=== PATIENT | male | born 1955 | race Caucasian/White ===

== ENCOUNTER 2020-10-04 10:03 | Inpatient (IN) ==
[2020-10-04] MEDS ORDERED: ASPIRIN CHEW 324 MG PO STA (10:34)
--- NOTE | 2020-10-04 10:38 | Emergency Department Note ---
Impression & Plan Chest pain, Atrial fibrillation, Pneumonia, Dyspnea, Exposure to COVID-19 virus, Abnormal ECG ED Provider Note NAME: DANIA SANDOVAL AGE: 65 SEX: M : 1955 ARRIVES VIA: Walk-In INFORMANT: Patient ED PROVIDER(S): Geovany Levi DO CHIEF COMPLAINT: Chest pain HPI: Patient is a 65-year-old male who presents to the ER for precordial chest pain associated with left arm pain and shortness of breath. This occurs over the past 2 days with exertion. He notes it improves with rest. He has not had this before. He denies any swelling of his legs. He does have exposure to 2 in-laws who are living with him that were Covid positive. He has not been there since August 24. Denies any belly pain nausea vomiting or diarrhea. No dysuria urgency or frequency. No cough. Does take metoprolol and a NOAC for his blood thinner for A. fib. ROS: See above HPI for pertinent positives & negatives. A total of 10 systems reviewed and were otherwise negative. PAST MEDICAL HISTORY:See Below PAST SURGICAL HISTORY:See Below FAMILY HISTORY:See Below SOCIAL HISTORY:See Below HOME MEDICATIONS:See Below ALLERGIES:See Below VITALS:See Below PHYSICAL EXAMINATION: GENERAL: Sitting up in bed, alert, obese, disheveled EYE EXAM: normal conjunctiva. PERRL and EOM's grossly intact. OROPHARYNX: no exudate, no erythema, lips, buccal mucosa, and tongue normal and mucous membranes are moist NECK: supple, no nuchal rigidity, no adenopathy, non-tender LUNGS: Clear to auscultation. Normal chest wall mechanics HEART: no murmurs, S1 normal and S2 normal ABDOMEN: abdomen soft, non-tender, normo-active bowel sounds, no masses, no rebound or guarding. BACK: Back is symmetrical on inspection and there is no deformity, no midline tenderness, no CVA tenderness. SKIN: no rashes and no bruising UPPER EXTREMITIES: upper extremities are grossly normal. LOWER EXTREMITIES: No pitting edema. Calves are equal bilateral NEURO EXAM: Normal sensorium, cranial nerves II-XII grossly intact, normal speech, no gross weakness of arms, no gross weakness of legs. MEDICAL DECISION MAKING: Patient is a 65-year-old male who presents the ER for chest pain and shortness of breath. He has exposure to both his in-laws who are positive for arredondo virus 1 of which has with coronavirus. He is appear hunting. IV was established blood work was obtained. He has not missed any doses of his anticoagulants. Labs show no significant leukocytosis or anemia. INR at 1.3. BMP with a slightly elevated chloride. Creatinine at 1.4. Bilirubin LFTs and troponin was negative. Lipase unremarkable. Covid was negative. Chest x-ray shows a multifocal pneumonia which I do believe is most consistent with coronavirus especially with his exposure. Patient was covered with IV Rocephin and azithromycin. She was updated bedside. Heart rate trended down with IV fluids initially it was in the 130s trend down to low 100. EKG did show A. fib RVR with ST wave changes. No old to compare to. Patient was updated and discussed with the hospitalist for further evaluation. Triage Nursing notes reviewed. Prior medical records reviewed Vital Signs: reviewed and remarkable for hypertensive and tachycardic Differential diagnosis: Differential diagnoses includes but is not limited to acute coronary syndrome, myocardial infarction, pericarditis, pulmonary embolus, aortic dissection, pneumonia, pneumothorax, musculoskeletal, shingles, esophageal. ER treatment provided: See below Diagnostics interpreted by me: ECG: A. fib RVR rate of 132 Normal axis No PVCs ST depressions in the lateral leads and inferior leads QTC 474 Cardiac Monitoring: An order was placed for continuous cardiac monitoring. The monitor shows a rate of 130 with A. fib RVR rhythm. Laboratory studies: As stated above and show below. Imaging studies: Portable AP upright 1 view of the chest shows multifocal pneumonia Consultation(s): Chest with Dr. Santiago Guillermo for further evaluation ED COURSE: Procedures: none Critical Care: None Past Med/Surg History Medical History Atrial fibrillation Essential (primary) hypertension Hyperlipidemia Surgical History H/O shoulder replacement bilateral Family History Mother , age 83 Heart disease Myocardial infarction Father No problems noted. Social History Smoking Status: Never smoker Do You Dip or Chew Tobacco: Yes (only when he drives); Hx Alcohol Use: Yes Alcohol type: wine Alcohol Intake Frequency: 2-4 x/Month Hx Substance Use: No Preferred Language: Maori Communication Ability: Effective [employer] Required: No Beliefs That Will Affect Care: None marital status: Current Living Situation: Spouse Current Living Situation Comment: lives in [place] current occupational status: retired current occupation: worked at [employer] How many Children do You have: 2 Other Information That Helps Us Care for You: No Feels Safe at Home: Yes Safety Concerns: Feels Safe At This Time Assistive Devices: Glasses Allergies Allergies Allergy/AdvReac Type Severity Reaction Status Date / Time mercury (elemental) Allergy Intermediate Rash Unverified 10/04/20 11:14 adhesive Allergy Mild Rash to Unverified 10/04/20 11:15 band aids - possibly adhesive or latex - uncertain Home Meds Home Medications Medication Instructions Recorded Confirmed C,E,zinc,copper [id number] 1 cap PO QAM 10/04/20 10/04/20 [Ocuvite Adult 50 Plus] apixaban [Eliquis] 5 mg PO BID 10/04/20 10/04/20 ascorbic acid (vitamin C) [Vitamin 1 g PO QAM 10/04/20 10/04/20 C] aspirin 81 mg PO HS 10/04/20 10/04/20 hydrochlorothiazide 12.5 mg PO QAM 10/04/20 10/04/20 metoprolol tartrate 75 mg PO HS 10/04/20 10/04/20 [id number] 1 tab PO QAM 10/04/20 10/04/20 [Centrum Silver Men] omeprazole 40 mg PO QAM 10/04/20 10/04/20 ramipril 10 mg PO BID 10/04/20 10/04/20 rosuvastatin 20 mg PO HS 10/04/20 10/04/20 zinc 50 mg PO QAM 10/04/20 10/04/20 Results & Data (ED) Vital Signs Vital Signs - 24 hr 10/04/20 10:13 10/04/20 10:35 10/04/20 10:39 Pulse Rate 110 H 127 H 111 H Pulse Rate from SpO2 Sensor 87 92 H Respiratory Rate 20 17 18 Blood Pressure 146/76 H 115/75 Blood Pressure Mean 99 85 Pulse Oximetry 95 93 93 Oxygen Delivery Method Room Air Sepsis Recent Fever Within 48 Hours No Sepsis New/Unexplained Change in Mental Status N/A Sepsis Action Taken by Nursing No Action Required 10/04/20 10:43 10/04/20 10:44 10/04/20 11:00 Pulse Rate 116 H 123 H Pulse Rate from SpO2 Sensor 126 H Respiratory Rate 22 23 Blood Pressure Blood Pressure Mean Pulse Oximetry 92 92 95 Oxygen Delivery Method Room Air Room Air Sepsis Recent Fever Within 48 Hours Sepsis New/Unexplained Change in Mental Status Sepsis Action Taken by Nursing 10/04/20 11:01 10/04/20 11:30 10/04/20 12:00 Pulse Rate 109 H 124 H 95 H Pulse Rate from SpO2 Sensor 97 H 105 H 93 H Respiratory Rate 19 22 23 Blood Pressure 144/92 H 152/81 H 166/114 H Blood Pressure Mean 109 116 134 Pulse Oximetry 94 94 93 Oxygen Delivery Method Sepsis Recent Fever Within 48 Hours Sepsis New/Unexplained Change in Mental Status Sepsis Action Taken by Nursing 10/04/20 12:30 10/04/20 13:00 10/04/20 13:30 Pulse Rate 101 H 108 H 105 H Pulse Rate from SpO2 Sensor 89 96 H Respiratory Rate 21 21 17 Blood Pressure 157/102 H 164/94 H Blood Pressure Mean 126 111 Pulse Oximetry 96 95 Oxygen Delivery Method Sepsis Recent Fever Within 48 Hours Sepsis New/Unexplained Change in Mental Status Sepsis Action Taken by Nursing 10/04/20 13:31 10/04/20 14:00 10/04/20 14:30 Pulse Rate 138 H 89 98 H Pulse Rate from SpO2 Sensor 89 Respiratory Rate 19 22 20 Blood Pressure 192/148 H Blood Pressure Mean 175 Pulse Oximetry 96 Oxygen Delivery Method Sepsis Recent Fever Within 48 Hours Sepsis New/Unexplained Change in Mental Status Sepsis Action Taken by Nursing 10/04/20 14:47 Pulse Rate 82 Pulse Rate from SpO2 Sensor 81 Respiratory Rate 22 Blood Pressure 145/80 H Blood Pressure Mean 91 Pulse Oximetry 97 Oxygen Delivery Method Sepsis Recent Fever Within 48 Hours Sepsis New/Unexplained Change in Mental Status Sepsis Action Taken by Nursing Laboratory Data Result diagrams: 10/04/20 10:37 10/04/20 10:37 Lab Results 10/04/20 10/04/20 10/04/20 Range/Units 10:37 10:37 10:37 WBC 5.24 (4.8-10.8) K/uL RBC 4.86 (4.7-6.1) M/uL Hgb 14.6 (14.0-18.0) g/dL Hct 42.9 (42-52) % MCV 88.3 (80-100) fL MCH 30.0 (25-34) pg MCHC 34.0 (32-36) g/dL RDW Std Deviation 46.7 H (36.4-46.3) fL RDW Coeff of Melanie 14.3 (11.5-14.5) % Plt Count 160 (130-400) K/uL MPV 9.5 (7.4-10.4) fL Immature Gran % (Auto) 0.0 % Neut % (Auto) 71.9 % Lymph % (Auto) 20.6 % [place] % (Auto) 7.3 % Eos % (Auto) 0.0 % Baso % (Auto) 0.2 % Neut # (Auto) 3.77 (1.4-6.5) K/uL Lymph # (Auto) 1.08 L (1.2-3.4) K/uL [place] # (Auto) 0.38 (0.11-0.59) K/uL Eos # (Auto) 0.00 (0-0.5) K/uL Baso # (Auto) 0.01 (0-0.2) K/uL Immature Gran # (Auto) 0.00 (0.00-0.02) K/uL PT 13.4 H (9.0-12.0) Seconds INR 1.3 H (0.9-1.1) APTT 34.0 H (21.0-31.0) Seconds PTT Ratio 1.2 D-Dimer 440 (0-500) ug/L FEU Sodium 139 (136-145) mmol/L Potassium 3.5 (3.5-5.1) mmol/L Chloride 108 H (98-107) mmol/L Carbon Dioxide 22 (21-32) mmol/L Anion Gap 9.0 (3-11) BUN 24 H (7-18) mg/dl Creatinine 1.42 H (0.6-1.4) mg/dl Est Cr Clr Drug Dosing Not Reportable Est GFR ( Amer) 58.8 Est GFR (Non-Af Amer) 50.7 BUN/Creatinine Ratio 16.5 (10-20) Glucose 137 H (70-99) mg/dl Calcium 9.2 (8.5-10.1) mg/dl Total Bilirubin 0.4 (0.2-1) mg/dl AST 31 (15-37) U/L ALT 29 (12-78) U/L Alkaline Phosphatase 55 (45-117) U/L Troponin I < 0.015 (0-0.045) ng/ml Total Protein 7.5 (6.4-8.2) gm/dl Albumin 3.4 (3.4-5.0) gm/dl Globulin 4.1 H (2.5-4.0) gm/dl Albumin/Globulin Ratio 0.8 L (0.9-2) Lipase 268 (73-393) U/L COVID-19 Eval Order Hepatitis C Ab Screen (Neg) Influ A Molecular Assay (Negative) Influ B Molecular Assay (Negative) RSV (Molecular) (Negative) SARS-CoV-2, RNA, NAAT (NEGATIVE) SARS-CoV-2 Ag (Rapid) (Negative) 10/04/20 10/04/20 10/04/20 Range/Units 10:37 11:10 14:11 WBC (4.8-10.8) K/uL RBC (4.7-6.1) M/uL Hgb (14.0-18.0) g/dL Hct (42-52) % MCV (80-100) fL MCH (25-34) pg MCHC (32-36) g/dL RDW Std Deviation (36.4-46.3) fL RDW Coeff of Melanie (11.5-14.5) % Plt Count (130-400) K/uL MPV (7.4-10.4) fL Immature Gran % (Auto) % Neut % (Auto) % Lymph % (Auto) % [place] % (Auto) % Eos % (Auto) % Baso % (Auto) % Neut # (Auto) (1.4-6.5) K/uL Lymph # (Auto) (1.2-3.4) K/uL [place] # (Auto) (0.11-0.59) K/uL Eos # (Auto) (0-0.5) K/uL Baso # (Auto) (0-0.2) K/uL Immature Gran # (Auto) (0.00-0.02) K/uL PT (9.0-12.0) Seconds INR (0.9-1.1) APTT (21.0-31.0) Seconds PTT Ratio D-Dimer (0-500) ug/L FEU Sodium (136-145) mmol/L Potassium (3.5-5.1) mmol/L Chloride (98-107) mmol/L Carbon Dioxide (21-32) mmol/L Anion Gap (3-11) BUN (7-18) mg/dl Creatinine (0.6-1.4) mg/dl Est Cr Clr Drug Dosing Est GFR ( Amer) Est GFR (Non-Af Amer) BUN/Creatinine Ratio (10-20) Glucose (70-99) mg/dl Calcium (8.5-10.1) mg/dl Total Bilirubin (0.2-1) mg/dl AST (15-37) U/L ALT (12-78) U/L Alkaline Phosphatase (45-117) U/L Troponin I (0-0.045) ng/ml Total Protein (6.4-8.2) gm/dl Albumin (3.4-5.0) gm/dl Globulin (2.5-4.0) gm/dl Albumin/Globulin Ratio (0.9-2) Lipase (73-393) U/L COVID-19 Eval [facility] Ab Screen Neg (Neg) Influ A Molecular Assay (Negative) Influ B Molecular Assay (Negative) RSV (Molecular) (Negative) SARS-CoV-2, RNA, NAAT (NEGATIVE) SARS-CoV-2 Ag (Rapid) Negative (Negative) 10/04/20 10/04/20 Range/Units 14:11 14:45 WBC (4.8-10.8) K/uL RBC (4.7-6.1) M/uL Hgb (14.0-18.0) g/dL Hct (42-52) % MCV (80-100) fL MCH (25-34) pg MCHC (32-36) g/dL RDW Std Deviation (36.4-46.3) fL RDW Coeff of Melanie (11.5-14.5) % Plt Count (130-400) K/uL MPV (7.4-10.4) fL Immature Gran % (Auto) % Neut % (Auto) % Lymph % (Auto) % [place] % (Auto) % Eos % (Auto) % Baso % (Auto) % Neut # (Auto) (1.4-6.5) K/uL Lymph # (Auto) (1.2-3.4) K/uL [place] # (Auto) (0.11-0.59) K/uL Eos # (Auto) (0-0.5) K/uL Baso # (Auto) (0-0.2) K/uL Immature Gran # (Auto) (0.00-0.02) K/uL PT (9.0-12.0) Seconds INR (0.9-1.1) APTT (21.0-31.0) Seconds PTT Ratio D-Dimer (0-500) ug/L FEU Sodium (136-145) mmol/L Potassium (3.5-5.1) mmol/L Chloride (98-107) mmol/L Carbon Dioxide (21-32) mmol/L Anion Gap (3-11) BUN (7-18) mg/dl Creatinine (0.6-1.4) mg/dl Est Cr Clr Drug Dosing Est GFR ( Amer) Est GFR (Non-Af Amer) BUN/Creatinine Ratio (10-20) Glucose (70-99) mg/dl Calcium (8.5-10.1) mg/dl Total Bilirubin (0.2-1) mg/dl AST (15-37) U/L ALT (12-78) U/L Alkaline Phosphatase (45-117) U/L Troponin I (0-0.045) ng/ml Total Protein (6.4-8.2) gm/dl Albumin (3.4-5.0) gm/dl Globulin (2.5-4.0) gm/dl Albumin/Globulin Ratio (0.9-2) Lipase (73-393) U/L COVID-19 Eval Order Hepatitis C Ab Screen (Neg) Influ A Molecular Assay Negative (Negative) Influ B Molecular Assay Negative (Negative) RSV (Molecular) Negative (Negative) SARS-CoV-2, RNA, NAAT NEGATIVE (NEGATIVE) SARS-CoV-2 Ag (Rapid) (Negative) Administered Medications Heparin Sodium/Dextrose (Heparin Sodium/Dextrose) 25,000 units in 500 mls @ 31 mls/hr IV .[id number] [facility]; Protocol Stop: 11/03/20 13:59 Last Admin: 10/04/20 14:38 Dose: 1,550 units/hr, 31 mls/hr Documented by: [id number] Cosigned by: [id number] Discontinued Medications Aspirin (Aspirin Chew 324 Mg) 324 mg PO NOW STA Stop: 10/04/20 10:35 Last Admin: 10/04/20 10:52 Dose: 324 mg Documented by: [id number] Azithromycin (Azithromycin 250 Mg Tab) 500 mg PO NOW ONE Stop: 10/04/20 11:16 Last Admin: 10/04/20 11:22 Dose: 500 mg Documented by: [id number] Furosemide (Furosemide 40 Mg/4 Ml Vial) 20 mg IV NOW STA Stop: 10/04/20 13:47 Last Admin: 10/04/20 14:09 Dose: 20 mg Documented by: [id number] Heparin Sodium/Dextrose (Heparin Iv Standard *No* Bolus) 1 ea N/A ONE ONE; Protocol Stop: 10/04/20 13:49 Last Admin: 10/04/20 14:38 Dose: Not Given Documented by: [id number] Ceftriaxone Sodium (Rocephin) 1,000 mg in 50 mls @ 100 mls/hr IV NOW STA Stop: 10/04/20 11:44 Last Infusion: 10/04/20 11:59 Dose: 0 mls/hr Documented by: [id number] Admin: 10/04/20 11:22 Dose: 100 mls/hr Documented by: [id number] Metoprolol Tartrate (Metoprolol Tartrate 100 Mg Tab) 100 mg PO NOW STA Stop: 10/04/20 13:39 Last Admin: 10/04/20 14:09 Dose: 100 mg Documented by: [id number] Potassium Chloride (Potassium Chloride Crtab 20 Meq Tabcr) 40 meq PO NOW STA Stop: 10/04/20 13:47 Last Admin: 10/04/20 14:09 Dose: 40 meq Documented by: [id number] Discharge Plan Visit Data Chief Complaint: Cardiac Assessment Stated Complaint: PAIN IN CHEST,ARM,ETC,SWEATING,CLAMY ED Provider: Geovany Levi Discharge Problem: Chest pain, Atrial fibrillation, Pneumonia, Dyspnea, Exposure to COVID-19 virus, Abnormal ECG Discharge Instructions Krames/Other Patient Handouts: 2019-nCoV Forms Stand Alone Forms: My [facility] Prescriptions Prescriptions: No Action ascorbic acid (vitamin C) [Vitamin C] 1,000 mg Tablet 1 g PO QAM RF: 0 omeprazole 40 mg Capsule,Delayed Release(Dr/Ec) 40 mg PO QAM RF: 0 aspirin 81 mg Tablet,Delayed Release (Dr/Ec) 81 mg PO HS RF: 0 metoprolol tartrate 50 mg Tablet 75 mg PO HS RF: 0 hydrochlorothiazide 12.5 mg Capsule 12.5 mg PO QAM RF: 0 zinc 50 mg Tablet 50 mg PO QAM RF: 0 ramipril 10 mg Capsule 10 mg PO BID RF: 0 rosuvastatin 20 mg Tablet 20 mg PO HS RF: 0 Ocuvite Adult 50 Plus 250-5-1 mg Capsule 1 cap PO QAM RF: 0 Centrum Silver Men 300-600-300 mcg Tablet 1 tab PO QAM RF: 0 Eliquis 5 mg Tablet 5 mg PO BID RF: 0 Referrals Referrals: PCP,NO [Primary Care Provider] - Discharge Problem: Chest pain Qualifiers: Chest pain type: unspecified Qualified Code(s): R07.9 - Chest pain, unspecified Atrial fibrillation Qualifiers: Atrial fibrillation type: unspecified Qualified Code(s): I48.91 - Unspecified atrial fibrillation Pneumonia Qualifiers: Pneumonia type: due to unspecified organism Laterality: unspecified laterality Lung location: unspecified part of lung Qualified Code(s): J18.9 - Pneumonia, unspecified organism Dyspnea Qualifiers: Dyspnea type: unspecified Qualified Code(s): R06.00 - Dyspnea, unspecified
[2020-10-04 10:53] LABS: Basophils # (auto) 0.01 K/uL (0-0.2); Basophils % (auto) 0.2 %; Hematocrit (blood only) 42.9 % (42-52); Hemoglobin 14.6 g/dL (14.0-18.0); Lymphocytes # (auto) 1.08 K/uL (1.2-3.4); Lymphocytes % (auto) 20.6 %; Mean Corpuscular Volume 88.3 fL (80-100); Mean Platelet Volume 9.5 fL (7.4-10.4); Monocytes # (auto) 0.38 K/uL (0.11-0.59); Monocytes % (auto) 7.3 %; Neutrophils # (auto) 3.77 K/uL (1.4-6.5); Neutrophils % (auto) 71.9 %; Platelet Count 160 K/uL (130-400); RDW Coefficient of Variation 14.3 % (11.5-14.5); RDW Standard Deviation 46.7 fL (36.4-46.3); Red Blood Count 4.86 M/uL (4.7-6.1); White Blood Count 5.24 K/uL (4.8-10.8)
--- NOTE | 2020-10-04 10:55 | XRay Report ---
XR chest 1V portable CLINICAL HISTORY: Chest Pain COMPARISON STUDY: No previous studies for comparison. FINDINGS: The heart is the upper limits of normal in size. There are multifocal airspace opacities, s uspicious for a multifocal pneumonitis. Clinical and radiographic follow-up is recommended. Correlati on with Covid 19 testing is recommended. There are no pleural effusions. There are bilateral total sh oulder arthroplasties.[ IMPRESSION: 1. Multifocal airspace opacities, suspicious for a multifocal pneumonia. While nonspecific, this appe arance is consistent with the x-ray appearance of Covid 19 pneumonia ACT 112: Negative or not required by law. Electronically signed by: Waqar Jarvis M.D. 10/04/2020 10:54 AM
[2020-10-04 11:12] LABS: D Dimer 440 ug/L FEU (0-500); INR 1.3 (0.9-1.1); Partial Thromboplastin Ratio 1.2; Prothrombin Time 13.4 Seconds (9.0-12.0)
--- NOTE | 2020-10-04 11:12 | Electrocardiogram Report ---
Test Reason : Blood Pressure : / mmHG Vent. Rate : 132 BPM Atrial Rate : 138 BPM P-R Int : 000 ms QRS Dur : 092 ms QT Int : 320 ms P-R-T Axes : 000 060 -11 degrees QTc Int : 474 ms Atrial fibrillation with rapid ventricular response Nonspecific T wave abnormality Abnormal ECG No previous ECGs available Confirmed by Andrés Benitez ([id number]) on 10/04/2020 11:11:33 AM Referred By: Confirmed By:Art Benitez
[2020-10-04] MEDS ORDERED: AZITHROMYCIN 250 MG TAB PO ONE (11:15)
[2020-10-04] MEDS ORDERED: cefTRIAXone SODIUM 1,000 MG/50 ML BAG IV STA (11:15)
[2020-10-04 11:20] LABS: Alanine Aminotransferase 29 U/L (12-78); Albumin Level 3.4 gm/dl (3.4-5.0); Aspartate Aminotransferase 31 U/L (15-37); BUN Creatinine Ratio 16.5 (10-20); Blood Urea Nitrogen 24 mg/dl (7-18); Calcium 9.2 mg/dl (8.5-10.1); Carbon Dioxide 22 mmol/L (21-32); Chloride 108 mmol/L (98-107); Est GFR (African American) 58.8; Est GFR (Non-African American) 50.7; Glucose 137 mg/dl (70-99); Lipase 268 U/L (73-393); Potassium 3.5 mmol/L (3.5-5.1); Sodium 139 mmol/L (136-145)
[2020-10-04 11:25] LABS: Albumin Globulin Ratio 0.8 (0.9-2); Alkaline Phosphatase 55 U/L (45-117); Bilirubin,Total 0.4 mg/dl (0.2-1); Globulin 4.1 gm/dl (2.5-4.0); Total Protein 7.5 gm/dl (6.4-8.2); Troponin I < 0.015 ng/ml (0-0.045)
--- NOTE | 2020-10-04 12:59 | History & Physical Report ---
Date of Service October 04, 2020 Assessment & Plan (1) Chest pain: The patient had nonobstructive CAD on cath in 2013 in [place]. Details are uncertain. We obtained some of his office records from his parking lot laborer in [place], [place] and he was seen on 09/15/20. They were concerned about progressive CAD given his frequent chest pain symptoms. They made tentative plans for proceeding with heart cath in the near future. His parking lot laborer increased his metoprolol to 75mg at that visit. Current symptoms are quite concerning. Given that the frequency of his symptoms has increased over the last few days will hold eliquis and place on heparin drip in the event he needs a cath this h ospitalization. Obtain serial troponins. Increase his metoprolol to 100mg daily for better a.fib rate control and BP control. Check lipids in am. Check a1c in am. Cont asa & statin. Will ask [facility] [place] to consult in am. Will also obtain echo. (2) Pneumonia: CXR shows b/l infiltrates. I am uncertain if this represents pneumonia vs pulmonary edema, or both. He has some symptoms of infection - anorexia for a few days, fatigue, dyspnea, etc. However, has had no fever/chills. He did have SIGNIFICANT COVID-19 exposure in [place] before traveling here (uylybf-ff-wpo, fpiefl-cd-ars - both live with him). Rapid COVID was checked -- negative. [facility] COVID also negative. Ogcm-nsu-jwhc, given his cxr findings, exposure, etc - will keep as PUI and place in negative pressure/airborne isolation as precaution. Plan to check procal level in am. Repeat CXR in am. Lasix 20mg IV x 1 in the event this is pulmonary edema. Received rocephin/zithromax in ER - hold additional antibiotics pending his labs/cxr in am. (3) Dyspnea: rapid a.fib vs CAD vs pulmonary edema vs infectious etiology could all cause his symptoms. PE unlikely given his chronic eliquis use. lasix x 1. repeat cxr in am. treat a.fib, other cardiac issues. re-eval in am. (4) Exposure to COVID-19 virus: SIGNIFICANT exposure to such prior to leaving for [place]. Although he had COVID testing on 09/24 that was negative, his ijymie-gl-mdo / ungypu-om-pav both live with he & his . Lwqqxm-vy-auo was hospitalized for COVID - on Thanksgi. Csfxfl-pu-lun currently hospitalized with COVID. CXR is concerning for viral pneumonia. Although testing is negative here, he has lymphopenia, anorexia, etc. Keep as "PUI" in isolation for now given the clinical picture. Consider serum COVID antibodies. (5) Atrial fibrillation: rapid PAF. converted back to NSR in ER. Cont BB. Cont anticoagulation. Echo in am. (6) Hyperlipidemia: Check lipid profile AM. Cont statin. Check a1c. (7) Essential (primary) hypertension: Cont all home meds and adjust as needed. (8) Morbid obesity: BMI 45.9 (9) Abnormal CXR: Pneumonia vs pulmonary edema. Diurese. Repeat cxr in am. Received IV abx in ER - if cxr in am shows persistent infiltrates consider ongoing Rx for pneumonia. And see discussion above in "exposure to COVID-19 virus." (10) Nonobstructive atherosclerosis of coronary artery: Left heart cath - 2013. [place]. Details uncertain. May need repeat cath here. Cont aspirin, beta jerel, statin. (11) DVT prophylaxis: heparin infusion in abner of josy updated by phone this evening total time spent on all activities - 115 minutes - including speaking with cardiology, reviewing out of town records, compiling history from patient, management of multiple issues, updating spouse, etc. History of Present Illness Chief Complaint: chest pain episodes Primary Care Provider: NO PCP 65yo male with nonobstructive CAD (dx 2013), morbid obesity, HTN and hyperlipidemia who presents with chest pain. Has had these symptoms for several days/weeks, but worse over the last few days. Location - central chest. Episodes last 10-15 minutes. Some sweating and dyspnea. The chest pain spells have been associated with left arm pain. Light activity brings on the pain. Had "severe episode" this morning - much worse than previous spells. Took SL nitro this am without any improvement in chest pain. Went hunting this past Sunday morning but didn't have symptoms then. This was despite walking to his hunting stand and hauling a deer back to the camp in which he is staying. However, later that night, he did have an episode of chest pain. Central, with some radiation to left arm. Since Sunday he has had 10 episodes of chest pain. Episodes last 10-15 minutes. Came to [place] on September 24. Had negative COVID-19 test just before coming to [place]. Staying at brother's hunting camp in [facility] since arriving here. Followed by parking lot laborer in [place], his home state. Followed for a.fib and nonobstructive CAD. There was discussion about having a stress test vs heart cath in the coming weeks. Mfatqr-io-gdo and obqhqs-we-bhj live with him in [place]. Vhoiqg-kz-ecm just on from COVID-19. Sdwofz-rn-aas is currently hospitalized from COVID-19. is symptom free. Patient was around both in-laws just before leaving for [place]. Records obtained from [employer] in [facility] - 1. nonobstructive CAD on cath - 2013 (details uncertain) 2. stress test - 06/2018 - reversible defect in mid inferoseptal, mid inferior, and apical inferior location; 2nd reversible defect basal anterior, mid anteroseptal, and apical anterior location. 3. event monitor - 02/2019 - PAF Allergies Allergy/AdvReac Type Severity Reaction Status Date / Time mercury (elemental) Allergy Intermediate Rash Unverified 10/04/20 11:14 adhesive Allergy Mild Rash to Unverified 10/04/20 11:15 band aids - possibly adhesive or latex - uncertain Home Medications Medication Instructions Recorded Confirmed Type C,E,zinc,copper [id number]-mak 1 cap PO QAM 10/04/20 10/04/20 History [Ocuvite Adult 50 Plus] apixaban [Eliquis] 5 mg PO BID 10/04/20 10/04/20 History ascorbic acid (vitamin C) [Vitamin 1 g PO QAM 10/04/20 10/04/20 History C] aspirin 81 mg PO HS 10/04/20 10/04/20 History hydrochlorothiazide 12.5 mg PO QAM 10/04/20 10/04/20 History metoprolol tartrate 75 mg PO HS 10/04/20 10/04/20 History apiqphuc-wxb-RH-lycopen-lutein 1 tab PO QAM 10/04/20 10/04/20 History [Centrum Silver Men] omeprazole 40 mg PO QAM 10/04/20 10/04/20 History ramipril 10 mg PO BID 10/04/20 10/04/20 History rosuvastatin 20 mg PO HS 10/04/20 10/04/20 History zinc 50 mg PO QAM 10/04/20 10/04/20 History Past Med/Surg History Medical History (Updated 10/04/20 @ 22:27 by Santiago Guillermo) Atrial fibrillation Essential (primary) hypertension Finger mass, left 3rd digit - excision of mass Hyperlipidemia Nonobstructive atherosclerosis of coronary artery cath, 2013, [facility]; parking lot laborer - Giovanny Mijares MD Surgical History (Updated 10/04/20 @ 22:11 by Santiago Guillermo) H/O Achilles tendon repair left - 2013 H/O eye surgery right H/O shoulder replacement bilateral Hx of appendectomy S/P nasal septoplasty Family History Mother , age 83 Heart disease Myocardial infarction Father No problems noted. Social History Smoking Status: Never smoker Do You Dip or Chew Tobacco: Yes (only when he drives); Hx Alcohol Use: Yes Alcohol type: wine Alcohol Intake Frequency: 2-4 x/Month Hx Substance Use: No Preferred Language: Bulgarian Communication Ability: Effective Platform Stapler Required: No Beliefs That Will Affect Care: None marital status: Current Living Situation: Spouse Current Living Situation Comment: lives in [place] current occupational status: retired current occupation: worked at [employer] How many Children do You have: 2 Other Information That Helps Us Care for You: No Feels Safe at Home: Yes Safety Concerns: Feels Safe At This Time Assistive Devices: Glasses Review of Systems Constitutional: + chills, + fatigue and + anorexia; no fever Eyes: no worsening vision Ear, Nose, Mouth, Throat: + nasal obstruction (chronic); no sore throat no loss of taste or smell Respiratory: + dyspnea on exertion; no cough and no wheezing Cardiovascular: + chest pain and + edema (right leg - chronic ) Gastrointestinal: no abdominal pain, no nausea, no vomiting and no diarrhea/loose stools Genitourinary: no dysuria Musculoskeletal: + back pain; no myalgia Integumentary: no rash Neurologic: + loss of sensation (left leg) Psychiatric: no depression and no anxiety Endocrine: no diabetes Hematologic / Lymphatic: no easy bleeding and no easy bruising Physical Exam Constitutional: + acute distress (with minimal movement in bed he has dyspnea and tachypnea ) and + morbidly obese; no altered mental status Eyes: PERRL ENMT: external ear and nose normal, oropharynx normal Respiratory: + tachypneic (intermittent ) Auscultation: + diminished lung sounds (bases) and + crackles (bases ); no wheezes Cardiovascular: Rate/Rhythm: + tachycardic and + irregularly irregular Heart Sounds: normal S1 and normal S2; no murmur Vessels: posterior tibial pulses present and dorsalis pedis pulses present; no JVD Extremities: no edema Gastrointestinal (Abdomen): normal bowel sounds, soft, nontender, no hepatosplenomegaly Musculoskeletal: no cyanosis or clubbing, extremities motor strength 5/5 Skin: no rashes, warm and dry Neurologic: moves all extremities; no focal motor deficits Psychiatric: Orientation: alert and oriented x 3 Lymphatic: no cervical lymphadenopathy Results & Data Results & Data ([facility]) Vital Signs (Past 12 Hours) Vital Signs Pulse Resp BP Pulse Ox 10/04/20 12:00 95 H 23 166/114 H 93 10/04/20 11:30 124 H 22 152/81 H 94 10/04/20 11:01 109 H 19 144/92 H 94 10/04/20 11:00 123 H 23 95 10/04/20 10:44 92 10/04/20 10:43 116 H 22 92 10/04/20 10:39 111 H 18 93 10/04/20 10:35 127 H 17 115/75 93 10/04/20 10:13 110 H 20 146/76 H 95 Laboratory Results Laboratory Results - last 24 hr 10/04/20 10/04/20 10/04/20 10:37 10:37 10:37 WBC 5.24 RBC 4.86 Hgb 14.6 Hct 42.9 MCV 88.3 MCH 30.0 MCHC 34.0 RDW Std Deviation 46.7 H RDW Coeff of Melanie 14.3 Plt Count 160 MPV 9.5 Immature Gran % (Auto) 0.0 Neut % (Auto) 71.9 Lymph % (Auto) 20.6 [place] % (Auto) 7.3 Eos % (Auto) 0.0 Baso % (Auto) 0.2 Neut # (Auto) 3.77 Lymph # (Auto) 1.08 L [place] # (Auto) 0.38 Eos # (Auto) 0.00 Baso # (Auto) 0.01 Immature Gran # (Auto) 0.00 PT 13.4 H INR 1.3 H APTT 34.0 H PTT Ratio 1.2 D-Dimer 440 Sodium 139 Potassium 3.5 Chloride 108 H Carbon Dioxide 22 Anion Gap 9.0 BUN 24 H Creatinine 1.42 H Est Cr Clr Drug Dosing Not Reportable Est GFR ( Amer) 58.8 Est GFR (Non-Af Amer) 50.7 BUN/Creatinine Ratio 16.5 Glucose 137 H Calcium 9.2 Total Bilirubin 0.4 AST 31 ALT 29 Alkaline Phosphatase 55 Troponin I < 0.015 Total Protein 7.5 Albumin 3.4 Globulin 4.1 H Albumin/Globulin Ratio 0.8 L Lipase 268 COVID-19 Eval Order Hepatitis C Ab Screen Influ A Molecular Assay Influ B Molecular Assay RSV (Molecular) SARS-CoV-2, RNA, NAAT SARS-CoV-2 Ag (Rapid) 10/04/20 10/04/20 10/04/20 10:37 11:10 14:11 WBC RBC Hgb Hct MCV MCH MCHC RDW Std Deviation RDW Coeff of Melanie Plt Count MPV Immature Gran % (Auto) Neut % (Auto) Lymph % (Auto) [place] % (Auto) Eos % (Auto) Baso % (Auto) Neut # (Auto) Lymph # (Auto) [place] # (Auto) Eos # (Auto) Baso # (Auto) Immature Gran # (Auto) PT INR APTT PTT Ratio D-Dimer Sodium Potassium Chloride Carbon Dioxide Anion Gap BUN Creatinine Est Cr Clr Drug Dosing Est GFR ( Amer) Est GFR (Non-Af Amer) BUN/Creatinine Ratio Glucose Calcium Total Bilirubin AST ALT Alkaline Phosphatase Troponin I Total Protein Albumin Globulin Albumin/Globulin Ratio Lipase COVID-19 Eval [facility] C Ab Screen Neg Influ A Molecular Assay Influ B Molecular Assay RSV (Molecular) SARS-CoV-2, RNA, NAAT SARS-CoV-2 Ag (Rapid) Negative 10/04/20 10/04/20 10/04/20 14:11 14:45 17:49 WBC RBC Hgb Hct MCV MCH MCHC RDW Std Deviation RDW Coeff of Melanie Plt Count MPV Immature Gran % (Auto) Neut % (Auto) Lymph % (Auto) [place] % (Auto) Eos % (Auto) Baso % (Auto) Neut # (Auto) Lymph # (Auto) [place] # (Auto) Eos # (Auto) Baso # (Auto) Immature Gran # (Auto) PT INR APTT PTT Ratio D-Dimer Sodium Potassium Chloride Carbon Dioxide Anion Gap BUN Creatinine Est Cr Clr Drug Dosing Est GFR ( Amer) Est GFR (Non-Af Amer) BUN/Creatinine Ratio Glucose Calcium Total Bilirubin AST ALT Alkaline Phosphatase Troponin I < 0.015 Total Protein Albumin Globulin Albumin/Globulin Ratio Lipase COVID-19 Eval Order Hepatitis C Ab Screen Influ A Molecular Assay Negative Influ B Molecular Assay Negative RSV (Molecular) Negative SARS-CoV-2, RNA, NAAT NEGATIVE SARS-CoV-2 Ag (Rapid) 10/04/20 21:18 WBC RBC Hgb Hct MCV MCH MCHC RDW Std Deviation RDW Coeff of Melanie Plt Count MPV Immature Gran % (Auto) Neut % (Auto) Lymph % (Auto) [place] % (Auto) Eos % (Auto) Baso % (Auto) Neut # (Auto) Lymph # (Auto) [place] # (Auto) Eos # (Auto) Baso # (Auto) Immature Gran # (Auto) PT INR APTT 92.4 H* PTT Ratio 3.3 D-Dimer Sodium Potassium Chloride Carbon Dioxide Anion Gap BUN Creatinine Est Cr Clr Drug Dosing Est GFR ( Amer) Est GFR (Non-Af Amer) BUN/Creatinine Ratio Glucose Calcium Total Bilirubin AST ALT Alkaline Phosphatase Troponin I Total Protein Albumin Globulin Albumin/Globulin Ratio Lipase COVID-19 Eval Order Hepatitis C Ab Screen Influ A Molecular Assay Influ B Molecular Assay RSV (Molecular) SARS-CoV-2, RNA, NAAT SARS-CoV-2 Ag (Rapid) Diagnostic Findings 1. cxr: IMPRESSION: 1. Multifocal airspace opacities, suspicious for a multifocal pneumonia. While nonspecific, this appearance is consistent with the x-ray appearance of Covid 19 pneumonia 2. EKG - my reading - rapid a.fib, ST segment depression anterolateral leads and inferior leads. Shortly before coming to the floor patient converted to NSR. Code Status & VTE Plan Code Status full VTE Prophylaxis Plan VTE Prophylaxis will be ordered: Yes Critical Care Time Prolonged Care Time Prolonged Care Time: Yes Total Prolonged Care Time: 115 PG Care Time/CCT Total # of Minutes Spent Total Time Spent with Patient: Total time spent is greater than 50% in coordination of care (as documented) at patient's floor/unit and/or counseling patient: Prolonged Care Time Prolonged Care Time: Yes Total Prolonged Care Time: 115 Coding Level of Care Code 63800 Initial Inpt Care Lvl 3 (25 - SIGNIFICANT, SEPARATELY IDENTIFIABLE ) Diagnoses Chest pain R07.9 Chest pain type: unspecified Pneumonia J18.9 Pneumonia type: due to unspecified organism Laterality: unspecified laterality Lung location: unspecified part of lung Dyspnea R06.00 Dyspnea type: dyspnea on exertion Exposure to COVID-19 virus Z20.828 Atrial fibrillation I48.0 Atrial fibrillation type: paroxysmal Hyperlipidemia E78.2 Hyperlipidemia type: mixed hyperlipidemia Essential (primary) hypertension I10 Morbid obesity E66.01 Abnormal CXR R93.89 Nonobstructive atherosclerosis of coronary artery I25.10 DVT prophylaxis Z29.9 Additional Codes Prolonged Care Time - Prolonged Care Time: Yes ([id number]) Time Spent (min) 115 (1) Atrial fibrillation Atrial fibrillation type: paroxysmal Qualified Code(s): I48.0 - Paroxysmal atrial fibrillation (2) Dyspnea Dyspnea type: dyspnea on exertion Qualified Code(s): R06.00 - Dyspnea, unspecified (3) Hyperlipidemia Hyperlipidemia type: mixed hyperlipidemia Qualified Code(s): E78.2 - Mixed hyperlipidemia (4) Chest pain Chest pain type: unspecified Qualified Code(s): R07.9 - Chest pain, unspecified (5) Pneumonia Pneumonia type: due to unspecified organism Laterality: unspecified laterality Lung location: unspecified part of lung Qualified Code(s): J18.9 - Pneumonia, unspecified organism
[2020-10-04] MEDS ORDERED: METOPROLOL TARTRATE 100 MG TAB PO STA (13:38)
[2020-10-04] MEDS ORDERED: POTASSIUM CHLORIDE CRTAB 20 MEQ TABCR PO STA (13:46)
[2020-10-04] MEDS ORDERED: FUROSEMIDE 40 MG/4 ML VIAL IV STA (13:46)
[2020-10-04] MEDS ORDERED: Heparin IV Standard *NO* Bolus ONE (13:48)
[2020-10-04] MEDS ORDERED: HEPARIN SODIUM/DEXTROSE 25,000 UNITS/500 ML BAG IV SCH (14:00)
[2020-10-04 15:45] LABS: Influenza A virus by PCR Negative (Negative); Influenza B virus by PCR Negative (Negative); RSV by PCR Negative (Negative)
[2020-10-04] MEDS ORDERED: NITROGLYCERIN SL 0.4 MG/TAB TAB SL PRN (18:59)
[2020-10-04] MEDS ORDERED: ONDANSETRON INJ 2 MG/ML 2 ML VIAL IV PRN (18:59)
[2020-10-04] MEDS: ACETAMINOPHEN 325 MG TAB PO PRN ×2 (19:49→23:59)
[2020-10-04] MEDS: ROSUVASTATIN CALCIUM 20 MG TAB PO SCH (20:21)
[2020-10-04] MEDS: METOPROLOL SUCC 50MG EXT REL TAB PO SCH (20:22)
[2020-10-04] MEDS: ENALAPRIL MALEATE 10 MG TAB PO SCH (20:22)
[2020-10-04] MEDS: ASPIRIN 81 MG ECTAB PO SCH (20:22)
[2020-10-04] MEDS ORDERED: APIXABAN 5 MG TABLET PO SCH (21:00)
[2020-10-04 22:03] LABS: Partial Thromboplastin Ratio 3.3
[2020-10-04 22:04] LABS: Partial Thromboplastin Time 92.4 Seconds (21.0-31.0)
[2020-10-05 04:30] LABS: Calcium 8.2 mg/dl (8.5-10.1); Creatinine Clr Calc Pharmacy 67.8 ml/min; Est GFR (African American) 65.4; Est GFR (Non-African American) 56.5; Potassium 3.5 mmol/L (3.5-5.1)
[2020-10-05 04:32] LABS: Partial Thromboplastin Ratio 3.7
[2020-10-05 05:01] LABS: Partial Thromboplastin Time 102.2 Seconds (21.0-31.0)
[2020-10-05 06:16] LABS: Estimated Average Glucose 131 mg/dl; Hemoglobin A1C 6.2 % (4.5-5.6)
--- NOTE | 2020-10-05 08:36 | XRay Report ---
SINGLE VIEW CHEST CLINICAL HISTORY: Atypical chest pain. FINDINGS: An AP, portable, upright chest radiograph is compared to study dated 10/04/2020. The examin ation is degraded by portable technique and apical lordotic positioning. The cardiomediastinal silho uette is unremarkable noting atherosclerotic calcification of the thoracic aorta. Bilateral airspace opacities seen yesterday have improved. No large pleural effusion or pneumothorax is seen. The skelet al structures are osteopenic. The bony thorax is grossly intact. Bilateral shoulder arthroplasties ar e in place. IMPRESSION: Bilateral airspace opacities seen yesterday have improved. ACT 112: Negative or not required by law. Electronically signed by: Garland Feldman M.D. 10/05/2020 8:34 AM
[2020-10-05] MEDS ORDERED: NON-FORMULARY MEDICATION (C,E,Zinc,Copper 11-Omega3s-Lut [Ocuvite Adult 50 Plus] 250-5-1 m PO SCH (09:00)
--- NOTE | 2020-10-05 09:18 | Hospitalist Progress Note ---
Date of Service October 05, 2020 Assessment & Plan (1) Chest pain: serial troponins are unrevealing Increased metoprolol to 100mg daily for better a.fib rate control and BP control. Check lipids TC 85 Ha1c 6.2 Cont asa & statin. [facility], without acute concern, [facility] with non occlusive disease (2) Pneumonia: CXR shows b/l infiltrates but they did improved after lasix, echo with preserved Ef. However, has had no fever/chills. since x rays improved do not feel is significant pneumonia last exposure to his family in [place] was 09/24/[place], he was tested 09/20/20, he denies other exposures since and his who remains in [place] is negative Rapid COVID was checked -- negative. [facility] COVID also negative. since covid tests are negative x2, will release from airborne given diarrhea did check C diff ( its also negative) given fever and LLQ pain will have CT abd and pelvis to rule out diveritculitis and await other stool studies, blood cultures urine culture, starting cipro and flagyl, check lyme will have pt observe typical surgical mask precautions negative procal level in am. Repeat CXR in am improved after adolfo Received rocephin/zithromax in ER (3) Dyspnea: rapid a.fib vs CAD vs pulmonary edema vs infectious etiology could all cause his symptoms. PE unlikely given his chronic eliquis use. lasix x 1. with radiologic improvment suggesting maybe volume overload, c linically is improved (4) Exposure to COVID-19 virus: 2 negative tests, will remove from airborne precautions, did speak [facility] INfection control and will have on procedure mask and have staff take usual precaustions will ask not to co hort the pt until a more firm origin of fever is discerned (5) Atrial fibrillation: rapid PAF. converted back to NSR in ER. Cont BB.increased dose Cont anticoagulation. Echo in am. (6) Hyperlipidemia: favorable lipidsa Cont statin. (7) Essential (primary) hypertension: Cont all home meds and adjust as needed. (8) Morbid obesity: BMI 45.9 (9) Nonobstructive atherosclerosis of coronary artery: non occlusive disease Cont aspirin, beta jerel, statin. (10) DVT prophylaxis: heparin infusion in abner of eliquis Admission and Anticipated Discharge Date Admission Date: October 04, 2020 Subjective this pt was seen after cardiac cath, non occlusive disease is seen, he did have a fever of 102.7. His diarrhea did begin prior to his presentation. he only has some LLQ abdominal pain on exam Review of Systems Review of Systems: Mild distress and fatigue no headache, blurry or double vision no speech or swallowing issues Resolved chest pain, pressure or palpitations no shortness of breath, cough or wheezes Mild left lower abdominal pain, no nausea or vomiting, does have persistent diarrhea no dysuria, hematuria or frequency no focal joint pain or swelling no back pain, CVA tenderness or radicular pain no bruising, bleeding or rashes no focal signs of weakness or numbness or altered sensation no complaints of anxiety or depression. Physical Exam Physical Exam: The patient appeared well nourished and normally developed. Vital signs as documented. Head exam is normocephalic atraumatic no scleral icterus Neck is without JVD, thyromegaly, or carotid bruits. Lungs are clear to auscultation, no focal loss of breath sounds Cardiac exam, Rhythm is regular.. No murmurs, rubs or gallops. Abdominal exam reveals normal bowel sounds, soft LLQ tenderness Extremities are nonedematous and both pedal pulses are present right wrist cath site is clean dry and intact with the pressure band on Neurologic exam is alert and oriented, no focal loss of strength or sensation Skin is without bruises or rashes Psychologically is without concerns for anxiety or depression. Results & Data Results & Data ([facility]) Vital Signs (Past 12 Hours) Vital Signs Temp Pulse Pulse Pulse Pulse Resp BP 10/05/20 08:12 100.6 F H 81 24 120/69 10/05/20 04:29 97.9 F 79 18 123/64 10/05/20 02:25 80 10/05/20 02:11 99.0 F 10/04/20 23:54 100.8 F H 85 18 125/74 Pulse Ox 10/05/20 08:12 92 10/05/20 04:29 92 10/05/20 02:25 10/05/20 02:11 10/04/20 23:54 92 PG Care Time/CCT Total # of Minutes Spent Total Time Spent with Patient: Total time spent is greater than 50% in coordination of care (as documented) at patient's floor/unit and/or counseling patient: Coding Level of Care Code 91497 Subseq Hosp Care Lvl 3 Diagnoses Chest pain R07.9 Chest pain type: unspecified Pneumonia J18.9 Laterality: unspecified laterality Lung location: unspecified part of lung Pneumonia type: due to unspecified organism Dyspnea R06.00 Dyspnea type: dyspnea on exertion Exposure to COVID-19 virus Z20.828 Atrial fibrillation I48.0 Atrial fibrillation type: paroxysmal Hyperlipidemia E78.2 Hyperlipidemia type: mixed hyperlipidemia Essential (primary) hypertension I10 Morbid obesity E66.01 Nonobstructive atherosclerosis of coronary artery I25.10 DVT prophylaxis Z29.9 (1) Atrial fibrillation Atrial fibrillation type: paroxysmal Qualified Code(s): I48.0 - Paroxysmal atrial fibrillation (2) Dyspnea Dyspnea type: dyspnea on exertion Qualified Code(s): R06.00 - Dyspnea, unspecified (3) Hyperlipidemia Hyperlipidemia type: mixed hyperlipidemia Qualified Code(s): E78.2 - Mixed hyperlipidemia (4) Chest pain Chest pain type: unspecified Qualified Code(s): R07.9 - Chest pain, unspecified (5) Pneumonia Laterality: unspecified laterality Lung location: unspecified part of lung Pneumonia type: due to unspecified organism Qualified Code(s): J18.9 - Pneumonia, unspecified organism
--- NOTE | 2020-10-05 09:46 | XCELERA ---
[id number]
--- NOTE | 2020-10-05 10:36 | Cardiology Consultation ---
Date of Consultation October 05, 2020 Assessment & Plan (1) Chest pain: His chest pain is concerning for unstable angina. The character of the symptom and its relation to exertion and rest is suggestive of coronary disease. He is known to have a history of nonobstructive coronary disease. The episodes he reported are relatively brief and there has been no evidence of infarction either by biomarkers or echocardiography. We discussed options for evaluation to include noninvasive stress testing or coronary angiography. I think given his history and symptoms angiography would be the preferred option. He is in agreement. We will plan on proceeding later today. (2) Atrial fibrillation: He presented in atrial fibrillation. He occasionally has some symptoms of palpitations but may be unaware of most episodes. His rates were high at the time of admission which could have been related to higher adrenergic tone in the emergency room. It seems his beta-jerel was increased by his primary medical transcription editor before traveling to [place]. This dose was increased again this morning. He has been on systemic anticoagulation. Two doses of apixaban has been held in anticipation of his angiography today. We will restart this prior to discharge. (3) Nonobstructive atherosclerosis of coronary artery: He will be continued on aspirin and rosuvastatin. Additional recommendations based on the results of his angiography. History of Present Illness Reason for Consultation: Chest pain Requesting Physician: Eagle Attending Physician: Thanh Rasmussen MD History of Present Illness The patient is a 65-year-old gentleman with a history of nonobstructive coronary disease who is currently visiting from [place]. It seems that over the past few days the patient has been experiencing symptoms of central chest discomfort associated with left arm discomfort and diaphoresis. The episodes themselves appear to be precipitated by activity. They tend to last 10-15 choco neda and resolved without any specific intervention. The episodes themselves have been more significant and occurring with less activity over the last several days. Yesterday the patient did take a nitroglycerin with an episode but was not sure this produced any relief. He also describes some symptoms of what he felt were indigestion. These episodes can be associated with eating or occur at rest. These been more chronic in nature and he has had a gradual intensification of his therapy for GERD. The patient is relatively sedentary at baseline. Recently he has been camping and this involves some element of activity. He feels that his symptoms of discomfort are generally reproducible with moderate intensity activity. He does report a history of heart disease. He claims to have had multiple stress tests and more than 1 cardiac catheterization over the years. This appears to be monitoring for known nonobstructive coronary disease. He cannot recall having had similar symptoms to his presenting complaint in the past. Allergies Allergy/AdvReac Type Severity Reaction Status Date / Time mercury (elemental) Allergy Intermediate Rash Unverified 10/04/20 11:14 adhesive Allergy Mild Rash to Unverified 10/04/20 11:15 band aids - possibly adhesive or latex - uncertain Home Medications Medication Instructions Recorded Confirmed Type C,E,zinc,copper [id number] 1 cap PO QAM 10/04/20 10/04/20 History [Ocuvite Adult 50 Plus] apixaban [Eliquis] 5 mg PO BID 10/04/20 10/04/20 History ascorbic acid (vitamin C) [Vitamin 1 g PO QAM 10/04/20 10/04/20 History C] aspirin 81 mg PO HS 10/04/20 10/04/20 History hydrochlorothiazide 12.5 mg PO QAM 10/04/20 10/04/20 History metoprolol tartrate 75 mg PO HS 10/04/20 10/04/20 History fowwwfri-odq-GY-lycopen-lutein 1 tab PO QAM 10/04/20 10/04/20 History [Centrum Silver Men] omeprazole 40 mg PO QAM 10/04/20 10/04/20 History ramipril 10 mg PO BID 10/04/20 10/04/20 History rosuvastatin 20 mg PO HS 10/04/20 10/04/20 History zinc 50 mg PO QAM 10/04/20 10/04/20 History Patient History Medical History (Updated 10/04/20 @ 22:27 by Santiago Guillermo) Atrial fibrillation Essential (primary) hypertension Finger mass, left 3rd digit - excision of mass Hyperlipidemia Nonobstructive atherosclerosis of coronary artery cath, 2013, [facility]; medical transcription editor - Giovanny Mijares MD Surgical History (Updated 10/04/20 @ 22:11 by Santiago Guillermo) H/O Achilles tendon repair left - 2013 H/O eye surgery right H/O shoulder replacement bilateral Hx of appendectomy S/P nasal septoplasty Family History Mother , age 83 Heart disease Myocardial infarction Father No problems noted. Social History Smoking Status: Never smoker Do You Dip or Chew Tobacco: Yes (only when he drives); Hx Alcohol Use: Yes Alcohol type: wine Alcohol Intake Frequency: 2-4 x/Month Hx Substance Use: No Preferred Language: Tongan Communication Ability: Effective Pododermatologist Required: No Beliefs That Will Affect Care: None marital status: Current Living Situation: Spouse Current Living Situation Comment: lives in [place] current occupational status: retired current occupation: worked at [employer] How many Children do You have: 2 Other Information That Helps Us Care for You: No Feels Safe at Home: Yes Safety Concerns: Feels Safe At This Time Assistive Devices: CPAP and Glasses Review of Systems Review of Systems: All systems reviewed & are unremarkable except as noted in HPI & below He does have some gastrointestinal complaints, primarily diarrhea. This appears to have started yesterday. No current abdominal pain. No subjective fevers or chills. No significant breathing difficulty. He does have some fatigue and is feeling tired. He denies any swelling in his lower extremities. No orthopnea. Physical Exam Physical Exam: The patient is alert and oriented. Mood and affect appeared normal. He answered all questions appropriately. HEENT: Pupils are equal and reactive to light and accommodation. Extraocular movements are intact. The sclerae are anicteric. Neuro: Cranial nerves intact Neck: Patient's neck is supple. He has palpable carotid pulses bilaterally without bruits on auscultation. There is no evidence of jugular venous distention. The thyroid is not enlarged. Lungs: Clear to auscultation bilaterally. He has good air movement without use of accessory muscles. No rales wheezes or rhonchi. Chest: Surgical scars noted on both shoulders. Cardiac: Heart demonstrates a regular rate and rhythm. Normal S1 and S2. No murmurs on examination. Pulses: The patient has palpable radial pulses bilaterally that are equal in intensity Extremities: There was no evidence of hypoperfusion. There is no cyanosis or clubbing. There is no edema. Skin: I did not appreciate any rashes on examination today. Results & Data ([facility]) Vital Signs (Past 12 Hours) Vital Signs Temp Pulse Pulse Pulse Pulse Resp BP 10/05/20 08:12 38.1 C H 81 24 120/69 10/05/20 08:00 86 10/05/20 04:29 36.6 C 79 18 123/64 10/05/20 02:25 80 10/05/20 02:11 37.2 C 10/04/20 23:54 38.2 C H 85 18 125/74 Pulse Ox 10/05/20 08:12 92 10/05/20 08:00 10/05/20 04:29 92 10/05/20 02:25 10/05/20 02:11 10/04/20 23:54 92 Laboratory Results Abnormal Lab Results 10/04/20 10/04/20 10/04/20 10:37 14:11 14:11 APTT PTT Ratio Sodium Potassium Chloride Carbon Dioxide Anion Gap BUN Creatinine Est Cr Clr Drug Dosing Est GFR ( Amer) Est GFR (Non-Af Amer) BUN/Creatinine Ratio Glucose Estimat Average Glucose Hemoglobin A1c Calcium Troponin I Triglycerides Cholesterol LDL Cholesterol, Calc VLDL Cholesterol, Calc HDL Cholesterol Cholesterol/HDL Ratio Procalcitonin COVID-19 Eval Order Covid19 [facility] Hepatitis C Ab Screen Neg Influ A Molecular Assay Influ B Molecular Assay RSV (Molecular) SARS-CoV-2, RNA, NAAT NEGATIVE 10/04/20 10/04/20 10/04/20 14:45 17:49 21:18 APTT 92.4 H* PTT Ratio 3.3 Sodium Potassium Chloride Carbon Dioxide Anion Gap BUN Creatinine Est Cr Clr Drug Dosing Est GFR ( Amer) Est GFR (Non-Af Amer) BUN/Creatinine Ratio Glucose Estimat Average Glucose Hemoglobin A1c Calcium Troponin I < 0.015 Triglycerides Cholesterol LDL Cholesterol, Calc VLDL Cholesterol, Calc HDL Cholesterol Cholesterol/HDL Ratio Procalcitonin COVID-19 Eval Order Hepatitis C Ab Screen Influ A Molecular Assay Negative Influ B Molecular Assay Negative RSV (Molecular) Negative SARS-CoV-2, RNA, NAAT 10/05/20 10/05/20 10/05/20 03:57 03:57 03:57 APTT 102.2 H* PTT Ratio 3.7 Sodium 138 Potassium 3.5 Chloride 105 Carbon Dioxide 26 Anion Gap 7.0 BUN 23 H Creatinine 1.30 Est Cr Clr Drug Dosing 67.8 Est GFR ( Amer) 65.4 Est GFR (Non-Af Amer) 56.5 BUN/Creatinine Ratio 18.0 Glucose 103 H Estimat Average Glucose Hemoglobin A1c Calcium 8.2 L Troponin I < 0.015 Triglycerides 159 H Cholesterol 85 LDL Cholesterol, Calc 31 VLDL Cholesterol, Calc 32 HDL Cholesterol 22 Cholesterol/HDL Ratio 4 Procalcitonin COVID-19 Eval Order Hepatitis C Ab Screen Influ A Molecular Assay Influ B Molecular Assay RSV (Molecular) SARS-CoV-2, RNA, NAAT 10/05/20 10/05/20 03:57 03:57 APTT PTT Ratio Sodium Potassium Chloride Carbon Dioxide Anion Gap BUN Creatinine Est Cr Clr Drug Dosing Est GFR ( Amer) Est GFR (Non-Af Amer) BUN/Creatinine Ratio Glucose Estimat Average Glucose 131 Hemoglobin A1c 6.2 H Calcium Troponin I Triglycerides Cholesterol LDL Cholesterol, Calc VLDL Cholesterol, Calc HDL Cholesterol Cholesterol/HDL Ratio Procalcitonin < 0.05 COVID-19 Eval Order Hepatitis C Ab Screen Influ A Molecular Assay Influ B Molecular Assay RSV (Molecular) SARS-CoV-2, RNA, NAAT Diagnostic Findings Echocardiogram performed today revealed preserved LV systolic function without regional wall motion abnormalities. No significant valvular heart disease. Bilateral pulmonary infiltrates consistent with COVID-19 infection. However, chest x-ray performed today reveals near resolution of the infiltrates. ECG Additional Comments: EKG obtained at the time admission revealed atrial fibrillation with incomplete right bundle branch block and nonspecific ST and T- wave changes PG Care Time/CCT Total # of Minutes Spent Total Time Spent with Patient: Total time spent is greater than 50% in coordination of care (as documented) at patient's floor/unit and/or counseling patient: Coding Level of Care Code 75790 Initial Inpt Care Lvl 3 Diagnoses Chest pain R07.9 Chest pain type: unspecified Atrial fibrillation I48.0 Atrial fibrillation type: paroxysmal Nonobstructive atherosclerosis of coronary artery I25.10 (1) Chest pain Chest pain type: unspecified Qualified Code(s): R07.9 - Chest pain, unspecified (2) Atrial fibrillation Atrial fibrillation type: paroxysmal Qualified Code(s): I48.0 - Paroxysmal atrial fibrillation
[2020-10-05] MEDS ORDERED: niCARdipine HCL INJ 2.5 MG/ML 10 ML AMP ONE (11:25)
[2020-10-05] MEDS ORDERED: fentaNYL citrate 100 MCG/2 ML VIAL ONE (11:25)
[2020-10-05] MEDS ORDERED: HEPARIN (PORCINE) 1000 UNIT/ML 10 ML (CATH LAB USE ONLY) ONE (11:25)
[2020-10-05] MEDS ORDERED: NITROGLYCERIN/D5W 100MCG/ML 20ML SYR ONE (11:26)
[2020-10-05] MEDS ORDERED: MIDAZOLAM HCL 1 MG/ML 2ML VIAL ONE (11:26)
--- NOTE | 2020-10-05 11:43 | Pre Anesthesia Assessment ---
Date of Service October 05, 2020 Pre Sedation Assessment Vital Signs Temp Pulse Pulse Pulse Pulse Resp BP 10/05/20 08:12 38.1 C H 81 24 10/05/20 08:00 86 10/05/20 04:29 36.6 C 79 18 10/05/20 02:25 80 10/05/20 02:11 37.2 C 10/04/20 23:54 38.2 C H 85 18 10/04/20 18:59 37.4 C 84 16 10/04/20 18:38 10/04/20 18:11 82 24 151/72 H 10/04/20 17:30 80 26 H 157/78 H 10/04/20 17:00 79 26 H 144/76 H 10/04/20 16:31 80 18 141/63 H 10/04/20 16:30 79 16 10/04/20 16:02 81 20 138/78 10/04/20 15:30 79 18 170/86 H 10/04/20 15:00 79 23 171/93 H 10/04/20 14:47 82 22 145/80 H 10/04/20 14:30 98 H 20 10/04/20 14:00 89 22 10/04/20 13:31 138 H 19 192/148 H 10/04/20 13:30 105 H 17 10/04/20 13:00 108 H 21 164/94 H 10/04/20 12:30 101 H 21 157/102 H 10/04/20 12:00 95 H 23 166/114 H BP Pulse Ox 10/05/20 08:12 120/69 92 10/05/20 08:00 10/05/20 04:29 123/64 92 10/05/20 02:25 10/05/20 02:11 10/04/20 23:54 125/74 92 10/04/20 18:59 136/85 93 10/04/20 18:38 96 10/04/20 18:11 96 10/04/20 17:30 96 10/04/20 17:00 94 10/04/20 16:31 96 10/04/20 16:30 95 10/04/20 16:02 96 10/04/20 15:30 96 10/04/20 15:00 96 10/04/20 14:47 97 10/04/20 14:30 10/04/20 14:00 96 10/04/20 13:31 10/04/20 13:30 10/04/20 13:00 95 10/04/20 12:30 96 10/04/20 12:00 93 Cardiovascular + regular rate Respiratory + respiratory effort normal Pre-Sedation Airway Assessment Smoking Status: Never smoker Hx Sleep Apnea: Yes Hx Difficult Intubation: No Short, Thick Neck: No Thyromental Distance: > or= 3.5 Finger Breadths Oral Cavity: + WNL Mallampati Class: III ASA: ASA3 Procedure Planning Contraindications for Sedation: none Current Medications Reviewed: Yes Notes The planned sedation has been discussed with the patient. Informed Consent was obtained. I have identified the patient, determined the appropriateness of sedation and have assessed the patient immediately prior to the procedure. All medicine(s) and interventions are by my order.
[2020-10-05 11:46] LABS: Appearance Urine Clear (Clear); Bacteria Urine Automated Negative (Negative); Bilirubin Urine Negative (Negative); Blood Urine Negative (Negative); Color Urine Yellow; Glucose Urine UA Negative (Negative); Ketones Urine Trace (Negative); Leukocyte Esterase Urine Negative (Negative); Nitrite Urine Negative (Negative); Protein Urine 1+ (Negative); RBC Urine Automated 0-4 /hpf (0-4); Specific Gravity Urine 1.022 (1.000-1.030); Urobilinogen Urine Negative (Negative); pH Urine 5.5 (4.5-7.5)
--- NOTE | 2020-10-05 12:37 | Cardiac Catheterization ---
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 Cardiac Status Clinical evaluation leading to the procedure CAD Presenation: Stable angina Diagnostic Physicians Name: Andrés Benitez MD Closure Device Recommendations: Medical Therapy and/or Counseling Cardiac Cath Procedure Full Procedure Date October 05, 2020 Pre-Procedure Diagnosis Pre-Procedure Diagnosis: Cardiothoracic Symptom AUC Score AUC Score: 7 Post-Procedure Diagnosis Post-Procedure Diagnosis: Mild CAD Procedure(s) Performed Procedure(s) Performed: Coronary Angiography and Left Heart Cath Artist And Repertoire Manager Andrés Benitez MD Set Up Mechanic Coating Machines(s) none Estimated Blood Loss Estimated Blood Loss: 7cc Medication(s) Medication(s): Fentanyl, Heparin, Lidocaine 1%, Nicardipine, Nitroglycerin and Versed Summary of Findings Procedure performed: Left heart catheterization, coronary angiography Staff director of restaurants: Andrés Benitez MD Indication: The patient is a 65-year-old gentleman with a history of nonobstructive coronary artery disease who has been experiencing symptoms of progressively worsening chest discomfort. Procedure detail: The patient was informed the risks benefits alternatives to the intended procedure. He understood and wished to proceed. He was taken to the cardiac catheterization suite in a fasting state. Conscious sedation was administered per protocol the patient was monitored electrocardiographically throughout today's procedure. The right radial area was prepped and draped in usual sterile fashion. This area was anesthetized using subcutaneous menstruation lidocaine solution. Right radial artery was subsequently accessed using Seldinger technique and a sheath was placed over guidewire at this site. The sheath was used facilitate passage of the cardiac catheter for left heart catheterization and selective coronary angiography. Images were obtained in multiple orthogonal views prior to removal of the catheter and sheath. Hemostasis achieved at the access site using manual pressure. The patient tolerated procedure well. There were no immediate complications. Equipment used: 5 Romanian tiger 4 Findings: Coronary angiography Left main: Left main coronary was normal in size and caliber. It bifurcated normally into the left anterior descending left circumflex artery. No obs tructive disease in this vessel. Left anterior descending: Left anterior descending was a transapical vessel. There was diffuse disease in the proximal portion of the left anterior descending which compromised lumen approximately 40%. There were 2 medium diagonal branches. No additional obstructive disease. The circumflex: Left circumflex was a nondominant vessel. It had some luminal regularities and effectively trifurcate in its distal portion. There did not appear to be any obstructive disease in this vessel Right coronary: Right coronary was a large dominant vessel. There are no ob structive lesions in the right coronary artery. Impression: Right dominant coronary system Normal left ventricular end-diastolic pressure No evidence of aortic stenosis Nonobstructive disease in the proximal LAD Hemodynamics Rest Ao:: 112/67mmHg Final Ao: 110/63mmHg LV: 130/5mmHg LVEDP 11 mmHg Recommendations Recommendations: Medical Therapy and/or Counseling Radiation Exposure (mGy) 11/06/2008 Contrast (mls) [age] I attest to the content of the Intraoperative Record and any orders documented therein. Any exceptions are noted below. [facility] Card Cath Procedure Codes Cardiac Catheterization Procedure 1: Cardiovascular Cath Procedures: 95107 Coronaries and LHC (+/-LV) PG Care Time/CCT Total # of Minutes Spent Total Time Spent with Patient: Total time spent is greater than 50% in coordination of care (as documented) at patient's floor/unit and/or counseling patient:
--- NOTE | 2020-10-05 12:37 | Post Anesthesia Assessment ---
Date of Service October 05, 2020 Post Sedation Assessment Vital Signs Temp Pulse Pulse Pulse Pulse Resp BP 10/05/20 12:34 86 18 10/05/20 11:40 87 10/05/20 08:12 38.1 C H 81 24 10/05/20 08:00 86 10/05/20 04:29 36.6 C 79 18 10/05/20 02:25 80 10/05/20 02:11 37.2 C 10/04/20 23:54 38.2 C H 85 18 10/04/20 18:59 37.4 C 84 16 10/04/20 18:38 10/04/20 18:11 82 24 151/72 H 10/04/20 17:30 80 26 H 157/78 H 10/04/20 17:00 79 26 H 144/76 H 10/04/20 16:31 80 18 141/63 H 10/04/20 16:30 79 16 10/04/20 16:02 81 20 138/78 10/04/20 15:30 79 18 170/86 H 10/04/20 15:00 79 23 171/93 H 10/04/20 14:47 82 22 145/80 H 10/04/20 14:30 98 H 20 10/04/20 14:00 89 22 10/04/20 13:31 138 H 19 192/148 H 10/04/20 13:30 105 H 17 10/04/20 13:00 108 H 21 164/94 H BP Pulse Ox 10/05/20 12:34 154/72 H 93 10/05/20 11:40 169/74 H 92 10/05/20 08:12 120/69 92 10/05/20 08:00 10/05/20 04:29 123/64 92 10/05/20 02:25 10/05/20 02:11 10/04/20 23:54 125/74 92 10/04/20 18:59 136/85 93 10/04/20 18:38 96 10/04/20 18:11 96 10/04/20 17:30 96 10/04/20 17:00 94 10/04/20 16:31 96 10/04/20 16:30 95 10/04/20 16:02 96 10/04/20 15:30 96 10/04/20 15:00 96 10/04/20 14:47 97 10/04/20 14:30 10/04/20 14:00 96 10/04/20 13:31 10/04/20 13:30 10/04/20 13:00 95 Recovery Score Activity: Moves 4 extremities Respiration: Deep Breath/Cough Circulation: +/-20% PreAnes Value Consciousness: Fully Awake Oxygen Saturation: > 92% On Room Air Post Anesthesia Score: 10 Discharge Sedation Level of Care: Fast Track Phase II Post Sedation Plan On clinical assessment, the patient appears to have tolerated the sedation without complications. Patient is recovering as anticipated. Patient will continue to be monitored by nursing and may be discharged when sedation discharge criteria are met per below protocol. Upon Completions of procedure up to 15 minutes continue every 5 minute vital signs and the P.A.R. score; then discharge to a Phase I or Fast Track to Phase II per the following guidelines: * Discharge Patient to appropriate Phase II area if PAR is 8 or greater or return to pre- procedure baseline. The post - procedure orders will be as directed. * If PAR score is less than 8 or not return to pre-procedure baseline then patient will follow Phase I monitoring till PAR is reached for Phase II. The Phase I may be done in procedure room or may call to secure a Phase I area. * If naloxone or flumazenil are used for reversal, hold in Phase I for continued monitoring from when last reversal dose was given for a minimum of 60 minutes or longer pending the nurse and/or physician discretion of patient condition before discharge to Phase II. Please call the Sedation Physician to re-evaluate and complete post-note for discharge to Phase II area. Do NOT discharge from procedure sedation or Phase 1 until post- sedation evaluation note is complete by procedure /sedation MD Sedation Discharge Instructions to be given to the patient at discharge to home.
[2020-10-05] MEDS ORDERED: SODIUM CHLORIDE 0.9% 1000ML 600 ML IV SCH (12:45)
[2020-10-05] MEDS: ZINC SULFATE 220 MG CAPSULE PO SCH (13:05)
[2020-10-05] MEDS: MULTIVITAMIN TAB PO SCH (13:05)
[2020-10-05] MEDS: PANTOprazole 40 MG TAB PO SCH (13:05)
[2020-10-05] MEDS: ASCORBIC ACID 500 MG TAB PO SCH (13:05)
[2020-10-05] MEDS: ACETAMINOPHEN 325 MG TAB PO PRN (13:05)
[2020-10-05 14:13] LABS: Magnesium 1.6 mg/dl (1.8-2.4); Thyroid Stimulating Hormone 0.573 uIu/ml (0.300-4.500)
[2020-10-05] MEDS: metroNIDAZOLE 500 MG/100 ML BAG IV SCH ×2 (15:39→22:09)
[2020-10-05 16:33] LABS: Lyme Ab IgG w/WB Rflx Negative (Negative)
[2020-10-05 16:41] LABS: Lyme Ab IgM w/WB Rflx Equivocal (Negative)
[2020-10-05] MEDS: CIPROFLOXACIN / D5W 400 MG/200 ML BAG IV SCH (17:06)
--- NOTE | 2020-10-05 17:41 | CT Scan Report ---
ABDOMEN AND PELVIS CT WITH ORAL CONTRAST CT DOSE: 1898.80 mGy.cm HISTORY: Acute fever with generalized abdominal pain eval for intraabdominal source of fever poss di chiara TECHNIQUE: Multiaxial CT images of the abdomen and pelvis were performed following the use of oral co ntrast. A dose lowering technique was utilized adhering to the principles of ALARA. COMPARISON STUDY: Chest radiograph of same day FINDINGS: Limited exam secondary to patient body habitus with portions of the anatomy outside the fie ld-of-view. Beam hardening artifact. Since of coronary artery calcifications. Patchy bibasilar ground glass and consolidative opacities. No pneumatosis or pneumoperitoneum. Limited evaluation of the khalida d abdominal organs without the use of IV contrast. Calcified granulomata of the spleen. Hepatic steat osis. Unremarkable gallbladder. No biliary ductal dilation. Unremarkable pancreas and adrenal glands. Mild nonspecific bilateral perinephric stranding. Contrast within the collecting systems and urinary bladder from recent cardiac catheterization. There is nonspecific mild wall thickening of the distal left ureter, image 346 series 3. Prostamegaly. No aortic aneurysm. Phleboliths of the pelvis. No bowel obstruction. Liquid stool with air-fluid levels noted throughout the colon. No bowel obstruc tion or bowel wall thickening. Appendectomy. Unremarkable soft tissues. Degenerative changes of the s pine, pelvis and hips. IMPRESSION: 1. Bibasilar groundglass and alveolar opacities without pleural effusion are suspicious for multifoca l pneumonia. 2. Extensive coronary artery calcifications. 3. No bowel obstruction or bowel wall thickening. 4. Liquid stool throughout the colon is suggestive of diarrheal illness. 5. Prostamegaly. 6. There is suggestion of subtle nonspecific urothelial thickening of the distal left ureter. 7. Hepatic steatosis. ACT 112: Negative or not required by law. The above report was generated using voice recognition software. It may contain grammatical, syntax o r spelling errors. Electronically signed by: César Chand M.D. 10/05/2020 5:39 PM
[2020-10-05] MEDS: ACETAMINOPHEN 500 MG TAB PO PRN (20:22)
[2020-10-05] MEDS: ROSUVASTATIN CALCIUM 20 MG TAB PO SCH (20:23)
[2020-10-05] MEDS: ENALAPRIL MALEATE 10 MG TAB PO SCH (20:23)
[2020-10-05] MEDS: ASPIRIN 81 MG ECTAB PO SCH (20:24)
[2020-10-05] MEDS: METOPROLOL SUCC 50MG EXT REL TAB PO SCH (20:24)
[2020-10-06] MEDS: CIPROFLOXACIN / D5W 400 MG/200 ML BAG IV SCH (04:44)
[2020-10-06] MEDS: ACETAMINOPHEN 500 MG TAB PO PRN (06:45)
[2020-10-06] MEDS: metroNIDAZOLE 500 MG/100 ML BAG IV SCH (06:46)
--- NOTE | 2020-10-06 08:41 | Hospitalist Progress Note ---
Date of Service October 06, 2020 Assessment & Plan (1) Pneumonia: CXR shows b/l infiltrates but they did improved after lasix, echo with preserved Ef. CT abd/pelvis 10/05 shows bilateral ground glass, will order biofire to try to diagnose his infectious source with his persistent fevers, Ct did rule out diverticultits, but does show some colitis Now has fever and imaging persists of bilateral ground glass infiltrates, did change to doxycycline as his Lyme titre was equivocal IgM, pending further testing, Doxycycline will cover pulmonary process, sent urine legionella but is a send out Stool for C diff is negative and stool cultures pending will stop flagyl last exposure to his family in [place] was 09/24/20, he was tested 09/20/20, he denies other exposures since and his who remains in [place] is negative Rapid COVID was checked -- negative. IDnow COVID also negative. since covid tests are negative x2, will release from airborne given diarrhea did check C diff ( its also negative) blood cultures negative to date, urine culture ordered but uncollected , lyme equivocal awaiting further testing, anaplasmosis did not see any inclusions on peripheral smear will have pt observe typical surgical mask precautions negative procal level in am. (2) Chest pain: serial troponins are unrevealing, left heart cath 10/05 with non occlusive disease Increased metoprolol to 100mg daily for better a.fib rate control and BP control. Check lipids TC 85 Ha1c 6.2 Cont asa & statin. [facility] [place] reviewed echo, without acute concern, [facility] with non occlusive disease (3) Dyspnea: rapid a.fib vs CAD vs pulmonary edema vs infectious etiology could all cause his symptoms. PE unlikely given his chronic eliquis use. lasix x 1. with radiologic improvment suggesting maybe volume overload, cl inically is improved (4) Exposure to COVID-19 virus: 3 negative tests, will remove from airborne precautions, did speak [facility] INfection control and will have on procedure mask and have staff take usual precaustions will ask not to co hort the pt until a more firm origin of fever is discerned (5) Atrial fibrillation: rapid PAF. converted back to NSR in ER. Cont BB.increased dose Cont anticoagulation. Echo in am. (6) Hyperlipidemia: favorable lipids Cont statin. (7) Essential (primary) hypertension: Cont all home meds and adjust as needed. (8) Morbid obesity: BMI 45.9 (9) Nonobstructive atherosclerosis of coronary artery: non occlusive disease Cont aspirin, beta jerel, statin. (10) DVT prophylaxis: heparin infusion in [facility] Admission and Anticipated Discharge Date Admission Date: October 04, 2020 Subjective this pt states he still feels ill and still with non productive cough, abdominal pain is not recurred, he also does not recollect a tic bite Review of Systems Review of Systems: Mild distress and fatigue no headache, blurry or double vision no speech or swallowing issues Resolved chest pain, pressure or palpitations no shortness of breath, cough or wheezes Mild left lower abdominal pain, no nausea or vomiting, does have persistent diarrhea no dysuria, hematuria or frequency no focal joint pain or swelling no back pain, CVA tenderness or radicular pain no bruising, bleeding or rashes no focal signs of weakness or numbness or altered sensation no complaints of anxiety or depression. Physical Exam Physical Exam: The patient appeared well nourished and normally developed. Vital signs as documented. Head exam is normocephalic atraumatic no scleral icterus Neck is without JVD, thyromegaly, or carotid bruits. Lungs are clear to auscultation, no focal loss of breath sounds Cardiac exam, Rhythm is regular.. No murmurs, rubs or gallops. Abdominal exam reveals normal bowel sounds, soft LLQ tenderness Extremities are nonedematous and both pedal pulses are present right wrist cath site is clean dry and intact with the pressure band on Neurologic exam is alert and oriented, no focal loss of strength or sensation Skin is without bruises or rashes Psychologically is without concerns for anxiety or depression. Results & Data Results & Data ([facility]) Vital Signs (Past 12 Hours) Vital Signs Temp Pulse Resp BP Pulse Ox 10/06/20 07:33 99.0 F 71 16 106/67 92 10/06/20 04:09 100.6 F H 77 18 123/77 90 10/05/20 23:19 99.0 F 64 18 109/70 92 PG Care Time/CCT Total # of Minutes Spent Total Time Spent with Patient: Total time spent is greater than 50% in coordination of care (as documented) at patient's floor/unit and/or counseling patient: Coding Level of Care Code 33451 Subseq Hosp Care Lvl 3 Diagnoses Pneumonia J18.9 Laterality: unspecified laterality Lung location: unspecified part of lung Pneumonia type: due to unspecified organism Chest pain R07.9 Chest pain type: unspecified Dyspnea R06.00 Dyspnea type: dyspnea on exertion Exposure to COVID-19 virus Z20.828 Atrial fibrillation I48.0 Atrial fibrillation type: paroxysmal Hyperlipidemia E78.2 Hyperlipidemia type: mixed hyperlipidemia Essential (primary) hypertension I10 Morbid obesity E66.01 Nonobstructive atherosclerosis of coronary artery I25.10 DVT prophylaxis Z29.9 (1) Atrial fibrillation Atrial fibrillation type: paroxysmal Qualified Code(s): I48.0 - Paroxysmal atrial fibrillation (2) Dyspnea Dyspnea type: dyspnea on exertion Qualified Code(s): R06.00 - Dyspnea, unspecified (3) Hyperlipidemia Hyperlipidemia type: mixed hyperlipidemia Qualified Code(s): E78.2 - Mixed hyperlipidemia (4) Chest pain Chest pain type: unspecified Qualified Code(s): R07.9 - Chest pain, unspecified (5) Pneumonia Laterality: unspecified laterality Lung location: unspecified part of lung Pneumonia type: due to unspecified organism Qualified Code(s): J18.9 - Pneumonia, unspecified organism
[2020-10-06] MEDS: DOXYCYCLINE HYCLATE 100 MG in DEXTROSE 5% 100 ML IV SCH ×2 (09:27→21:50)
[2020-10-06] MEDS: PANTOprazole 40 MG TAB PO SCH (09:28)
[2020-10-06] MEDS: MULTIVITAMIN TAB PO SCH (09:28)
[2020-10-06] MEDS: ZINC SULFATE 220 MG CAPSULE PO SCH (09:28)
[2020-10-06 10:42] LABS: Adenovirus PCR Not Detected (NotDetected); Bordetella parapertussis PCR Not Detected (NotDetected); Bordetella pertussis PCR Not Detected (NotDetected); Chlamydia pneumoniae PCR Not Detected (NotDetected); Coronavirus 229E PCR Not Detected (NotDetected); Coronavirus CoV-2 (COVID19)PCR Not Detected (NotDetected); Coronavirus HKU1 PCR Not Detected (NotDetected); Coronavirus NL63 PCR Not Detected (NotDetected); Coronavirus OC43PCR Not Detected (NotDetected); Human Metapneumovirus PCR Not Detected (NotDetected); Influenza A PCR Not Detected (NotDetected); Influenza B PCR Not Detected (NotDetected); Mycoplasma pneumoniae PCR Not Detected (NotDetected); Parainfluenza Virus 1 PCR Not Detected (NotDetected); Parainfluenza Virus 2 PCR Not Detected (NotDetected); Parainfluenza Virus 3 PCR Not Detected (NotDetected); Parainfluenza Virus 4 PCR Not Detected (NotDetected); Respiratory Syncytial VirusPCR Not Detected (NotDetected); Rhinovirus/Enterovirus PCR Not Detected (NotDetected)
[2020-10-06] MEDS: ASCORBIC ACID 500 MG TAB PO SCH (10:55)
--- NOTE | 2020-10-06 12:58 | Electrocardiogram Report ---
Test Reason : Blood Pressure : / mmHG Vent. Rate : 083 BPM Atrial Rate : 083 BPM P-R Int : 158 ms QRS Dur : 100 ms QT Int : 344 ms P-R-T Axes : 030 038 -15 degrees QTc Int : 404 ms Sinus rhythm with Premature supraventricular complexes T wave abnormality, consider anterior ischemia Abnormal ECG When compared with ECG of 04-OCT-2020 10:25, Sinus rhythm has replaced Atrial fibrillation Vent. rate has decreased BY 49 BPM Inverted T waves have replaced nonspecific T wave abnormality in Anterior leads Confirmed by Andrés Benitez ([id number]) on 10/06/2020 12:58:07 PM Referred By: REFERRED SELF Confirmed By:Art Benitez
--- NOTE | 2020-10-06 14:11 | Electrocardiogram Report ---
Test Reason : Blood Pressure : / mmHG Vent. Rate : 072 BPM Atrial Rate : 072 BPM P-R Int : 170 ms QRS Dur : 102 ms QT Int : 386 ms P-R-T Axes : 019 032 014 degrees QTc Int : 422 ms Sinus rhythm with Premature atrial complexes Nonspecific T wave abnormality Abnormal ECG When compared with ECG of 05-OCT-2020 18:54, (unconfirmed) No significant change was found Confirmed by Andrés Benitez ([id number]) on 10/06/2020 2:11:35 PM Referred By: REFERRED SELF Confirmed By:Art Benitez
[2020-10-06] MEDS: ENALAPRIL MALEATE 10 MG TAB PO SCH (21:49)
[2020-10-06] MEDS: METOPROLOL SUCC 50MG EXT REL TAB PO SCH (21:49)
[2020-10-06] MEDS: ROSUVASTATIN CALCIUM 20 MG TAB PO SCH (21:49)
[2020-10-06] MEDS: ASPIRIN 81 MG ECTAB PO SCH (21:50)
[2020-10-07] MEDS: ASCORBIC ACID 500 MG TAB PO SCH (09:41)
[2020-10-07] MEDS: ZINC SULFATE 220 MG CAPSULE PO SCH (09:41)
[2020-10-07] MEDS: PANTOprazole 40 MG TAB PO SCH (09:42)
[2020-10-07] MEDS: MULTIVITAMIN TAB PO SCH (09:42)
[2020-10-07] MEDS: DOXYCYCLINE HYCLATE 100 MG in DEXTROSE 5% 100 ML IV SCH ×2 (10:09→21:48)
--- NOTE | 2020-10-07 15:19 | Hospitalist Progress Note ---
Date of Service October 07, 2020 Assessment & Plan (1) Pneumonia: CXR shows b/l infiltrates but they did improved after lasix, echo with preserved Ef. CT abd/pelvis 10/05 shows bilateral ground glass, will order biofire to try to diagnose his infectious source with his persistent fevers, Ct did rule out diverticultits, but does show some colitis Now has fever and imaging persists of bilateral ground glass infiltrates, did change to doxycycline as his Lyme titre was equivocal IgM, pending further testing, Doxycycline will cover pulmonary process, sent urine legionella but is a send out Stool for C diff is negative and stool cultures pending will stop flagyl last exposure to his family in [place] was 09/24/20, he was tested 09/20/20, he denies other exposures since and his who remains in [place] is negative Rapid COVID was checked -- negative. IDnow COVID also negative. since covid tests are negative x3, will release from airborne given diarrhea did check C diff ( its also negative) blood cultures negative to date, urine culture ordered but uncollected , lyme equivocal awaiting further testing, anaplasmosis did not see any inclusions on peripheral smear will have pt observe typical surgical mask precautions negative procal level in am. (2) Chest pain: serial troponins are unrevealing, left heart cath 10/05 with non occlusive disease Increased metoprolol to 100mg daily for better a.fib rate control and BP control. Check lipids TC 85 Ha1c 6.2 Cont asa & statin. [facility] cardiology reviewed echo, without acute concern, [facility] with non occlusive disease (3) Dyspnea: rapid a.fib vs CAD vs pulmonary edema vs infectious etiology could all cause his symptoms. PE unlikely given his chronic eliquis use. lasix x 1. with radiologic improvment suggesting maybe volume overload, cl inically is improved (4) Exposure to COVID-19 virus: 3 negative tests, will remove from airborne precautions, did speak [facility] INfection control and will have on procedure mask and have staff take usual precaustions will ask not to co hort the pt until a more firm origin of fever is discerned (5) Atrial fibrillation: rapid PAF. converted back to NSR in ER. Cont BB.increased dose Cont anticoagulation. Echo in am. (6) Hyperlipidemia: favorable lipids Cont statin. (7) Essential (primary) hypertension: Cont all home meds and adjust as needed. (8) Morbid obesity: BMI 45.9 (9) Nonobstructive atherosclerosis of coronary artery: non occlusive disease Cont aspirin, beta jerel, statin. (10) DVT prophylaxis: resume masooddungis Admission and Anticipated Discharge Date Admission Date: October 04, 2020 Subjective this pt states he feels much better, he is without a cough, loose stools are resolving, and no abdominal pain Review of Systems Review of Systems: Mild distress and fatigue no headache, blurry or double vision no speech or swallowing issues Resolved chest pain, pressure or palpitations no shortness of breath, cough or wheezes Mild left lower abdominal pain, no nausea or vomiting, does have persistent diarrhea no dysuria, hematuria or frequency no focal joint pain or swelling no back pain, CVA tenderness or radicular pain no bruising, bleeding or rashes no focal signs of weakness or numbness or altered sensation no complaints of anxiety or depression. Physical Exam Physical Exam: The patient appeared well nourished and normally developed. Vital signs as documented. Head exam is normocephalic atraumatic no scleral icterus Neck is without JVD, thyromegaly, or carotid bruits. Lungs are clear to auscultation, no focal loss of breath sounds Cardiac exam, Rhythm is regular.. No murmurs, rubs or gallops. Abdominal exam reveals normal bowel sounds, soft LLQ tenderness Extremities are nonedematous and both pedal pulses are present right wrist cath site is clean dry Neurologic exam is alert and oriented, no focal loss of strength or sensation Skin is without bruises or rashes Psychologically is without concerns for anxiety or depression. Results & Data Results & Data ([facility]) Vital Signs (Past 12 Hours) Vital Signs Temp Pulse Pulse Resp BP Pulse Ox 10/07/20 13:43 98.1 F 65 16 122/75 94 10/07/20 11:19 97.7 F 71 20 163/82 H 92 10/07/20 07:10 97.9 F 74 20 125/71 93 10/07/20 07:00 59 L 10/07/20 04:02 98.6 F 70 18 129/74 96 PG Care Time/CCT Total # of Minutes Spent Total Time Spent with Patient: Total time spent is greater than 50% in coordination of care (as documented) at patient's floor/unit and/or counseling patient: Coding Level of Care Code 93664 Subseq Hosp Care Lvl 3 Diagnoses Pneumonia J18.9 Laterality: unspecified laterality Lung location: unspecified part of lung Pneumonia type: due to unspecified organism Chest pain R07.9 Chest pain type: unspecified Dyspnea R06.00 Dyspnea type: dyspnea on exertion Exposure to COVID-19 virus Z20.828 Atrial fibrillation I48.0 Atrial fibrillation type: paroxysmal Hyperlipidemia E78.2 Hyperlipidemia type: mixed hyperlipidemia Essential (primary) hypertension I10 Morbid obesity E66.01 Nonobstructive atherosclerosis of coronary artery I25.10 DVT prophylaxis Z29.9 (1) Pneumonia Laterality: unspecified laterality Lung location: unspecified part of lung Pneumonia type: due to unspecified organism Qualified Code(s): J18.9 - Pneumonia, unspecified organism (2) Chest pain Chest pain type: unspecified Qualified Code(s): R07.9 - Chest pain, unspecified (3) Dyspnea Dyspnea type: dyspnea on exertion Qualified Code(s): R06.00 - Dyspnea, unspecified (4) Atrial fibrillation Atrial fibrillation type: paroxysmal Qualified Code(s): I48.0 - Paroxysmal atrial fibrillation (5) Hyperlipidemia Hyperlipidemia type: mixed hyperlipidemia Qualified Code(s): E78.2 - Mixed hyperlipidemia
[2020-10-07 17:44] LABS: 18KDIGG Band NON-REACTIVE; 23KDIGG Band NON-REACTIVE; 23KDIGM Band DNR; 28KDIGG Band NON-REACTIVE; 30KDIGG Band NON-REACTIVE; 39KDIGG Band NON-REACTIVE; 39KDIGM Band DNR; 41KDIGG Band NON-REACTIVE; 41KDIGM Band DNR; 45KDIGG Band NON-REACTIVE; 58KDIGG Band NON-REACTIVE; 66KDIGG Band NON-REACTIVE; 93KDIGG Band NON-REACTIVE; Lyme Antibodies, WB IgG NEGATIVE (NEGATIVE)
[2020-10-07] MEDS: ROSUVASTATIN CALCIUM 20 MG TAB PO SCH (21:19)
[2020-10-07] MEDS: METOPROLOL SUCC 50MG EXT REL TAB PO SCH (21:20)
[2020-10-07] MEDS: ENALAPRIL MALEATE 10 MG TAB PO SCH (21:20)
[2020-10-07] MEDS: ASPIRIN 81 MG ECTAB PO SCH (21:20)
[2020-10-07] MEDS: APIXABAN 5 MG TABLET PO SCH (21:48)
[2020-10-08] MEDS: ACETAMINOPHEN 500 MG TAB PO PRN (00:58)
--- NOTE | 2020-10-08 07:06 | Hospitalist Progress Note ---
Date of Service October 08, 2020 Assessment & Plan (1) Pneumonia: CXR shows b/l infiltrates but they did improved after lasix, echo with preserved Ef. CT abd/pelvis 10/05 shows bilateral ground glass, will order biofire to try to diagnose his infectious source with his persistent fevers, Ct did rule out diverticultits, but does show some colitis Now has fever and imaging persists of bilateral ground glass infiltrates, did change to doxycycline as his Lyme titre was equivocal IgM, pending further testing, Doxycycline will cover pulmonary process, sent urine legionella but is a send out Stool for C diff is negative and stool cultures pending will stop flagyl last exposure to his family in [place] was 09/24/20, he was tested 09/20/20, he denies other exposures since and his who remains in [place] is negative Rapid COVID was checked -- negative. IDnow COVID also negative. since covid tests are negative x3, will release from airborne given diarrhea did check C diff ( its also negative) blood cultures negative to date, urine culture ordered but uncollected , lyme equivocal awaiting further testing, anaplasmosis did not see any inclusions on peripheral smear possible lyme disease causing febrile illness will have pt observe typical surgical mask precautions negative procal level in am. (2) Chest pain: serial troponins are unrevealing, left heart cath 10/05 with non occlusive disease Increased metoprolol to 100mg daily for better a.fib rate control and BP control. Check lipids TC 85 Ha1c 6.2 Cont asa & statin. [facility] [place] cardiology reviewed echo, without acute concern, [facility] with non occlusive disease (3) Dyspnea: rapid a.fib vs CAD vs pulmonary edema vs infectious etiology could all cause his symptoms. PE unlikely given his chronic eliquis use. lasix x 1. with radiologic improvment suggesting maybe volume overload, clinically is improved (4) Exposure to COVID-19 virus: 3 negative tests, will remove from airborne precautions, did speak [facility] INfection control and will have on procedure mask and have staff take usual precaustions will ask not to co hort the pt until a more firm origin of fever is discerned (5) Atrial fibrillation: rapid PAF. converted back to NSR in ER. Cont BB.increased dose Cont anticoagulation. Echo in am. (6) Hyperlipidemia: favorable lipids Cont statin. (7) Essential (primary) hypertension: Cont all home meds and adjust as needed. (8) Morbid obesity: BMI 45.9 (9) Nonobstructive atherosclerosis of coronary artery: non occlusive disease Cont aspirin, beta jerel, statin. (10) DVT prophylaxis: resume eliquis Admission and Anticipated Discharge Date Admission Date: October 04, 2020 Results & Data Results & Data ([facility]) Vital Signs (Past 12 Hours) Vital Signs Temp Pulse Resp BP Pulse Ox 10/07/20 23:37 98.1 F 78 18 152/72 H 92 PG Care Time/CCT Total # of Minutes Spent Total Time Spent with Patient: Total time spent is greater than 50% in coordination of care (as documented) at patient's floor/unit and/or counseling patient: Coding Diagnoses Pneumonia J18.9 Laterality: unspecified laterality Lung location: unspecified part of lung Pneumonia type: due to unspecified organism Chest pain R07.9 Chest pain type: unspecified Dyspnea R06.00 Dyspnea type: dyspnea on exertion Exposure to COVID-19 virus Z20.828 Atrial fibrillation I48.0 Atrial fibrillation type: paroxysmal Hyperlipidemia E78.2 Hyperlipidemia type: mixed hyperlipidemia Essential (primary) hypertension I10 Morbid obesity E66.01 Nonobstructive atherosclerosis of coronary artery I25.10 DVT prophylaxis Z29.9 (1) Pneumonia Laterality: unspecified laterality Lung location: unspecified part of lung Pneumonia type: due to unspecified organism Qualified Code(s): J18.9 - Pneumonia, unspecified organism (2) Chest pain Chest pain type: unspecified Qualified Code(s): R07.9 - Chest pain, unspecified (3) Dyspnea Dyspnea type: dyspnea on exertion Qualified Code(s): R06.00 - Dyspnea, unspecified (4) Atrial fibrillation Atrial fibrillation type: paroxysmal Qualified Code(s): I48.0 - Paroxysmal atrial fibrillation (5) Hyperlipidemia Hyperlipidemia type: mixed hyperlipidemia Qualified Code(s): E78.2 - Mixed hyperlipidemia
[2020-10-08] MEDS: DOXYCYCLINE HYCLATE 100 MG in DEXTROSE 5% 100 ML IV SCH (07:27)
[2020-10-08] MEDS: APIXABAN 5 MG TABLET PO SCH (07:27)
[2020-10-08] MEDS: MULTIVITAMIN TAB PO SCH (07:27)
[2020-10-08] MEDS: PANTOprazole 40 MG TAB PO SCH (07:27)
[2020-10-08] MEDS: ASCORBIC ACID 500 MG TAB PO SCH (07:27)
[2020-10-08] MEDS: ZINC SULFATE 220 MG CAPSULE PO SCH (07:27)
[2020-10-08] MEDS ORDERED: LOPERAMIDE HCL 2 MG CAP PO PRN (08:41)
[2020-10-08 11:51] LABS: Lyme Ab IgG w/WB Rflx Negative (Negative)
[2020-10-08] MEDS ORDERED: LOPERAMIDE HCL 2 MG CAP PO ONE (11:55)
[2020-10-08 12:09] LABS: Lyme Ab IgM w/WB Rflx Equivocal (Negative)
--- NOTE | 2020-10-08 14:05 | Discharge Summary ---
Date of Service October 08, 2020 Admission HPI Per Admitting Provider 65yo male with nonobstructive CAD (dx 2014), morbid obesity, HTN and hyperlipidemia who presents with chest pain. Has had these symptoms for several days/weeks, but worse over the last few days. Location - central chest. Episodes last 10-15 minutes. Some sweating and dyspnea. The chest pain spells have been associated with left arm pain. Light activity brings on the pain. Had "severe episode" this morning - much worse than previous spells. Took SL nitro this am without any improvement in chest pain. Went hunting this past Sunday morning but didn't have symptoms then. This was despite walking to his hunting stand and hauling a deer back to the camp in which he is staying. However, later that night, he did have an episode of chest pain. Central, with some radiation to left arm. Since Sunday he has had 10 episodes of chest pain. Episodes last 10-15 minutes. Came to [place] on September 24. Had negative COVID-19 test just before coming to [place]. Staying at brother's hunting camp in [facility] since arriving here. Followed by vapor coater in [place], his home state. Followed for a.fib and nonobstructive CAD. There was discussion about having a stress test vs heart cath in the coming weeks. Giszoj-si-wfg and skzhwm-eu-bgd live with him in [place]. Tutcms-oi-evj just on from COVID-19. Euuzsp-hr-sdd is currently hospitalized from COVID-19. is symptom free. Patient was around both in-laws just before leaving for [place]. Records obtained from [facility] in [facility] - 1. nonobstructive CAD on cath - 2013 (details uncertain) 2. stress test - 06/2018 - reversible defect in mid inferoseptal, mid inferior, and apical inferior location; 2nd reversible defect basal anterior, mid anteroseptal, and apical anterior location. 3. event monitor - 02/2019 - PAF Principal Diagnosis Febrile illness felt to be tickborne Diarrheal illness felt to be viral Negative Covid testing x3 Chest pain with left heart cath revealing nonocclusive disease recommend follow- up with home vapor coater in [place] continue cardiac medications Discharge Exam The patient appeared well at the time of discharge although still having mild diarrhea Vital signs as documented. Lungs are clear to auscultation and appear unlabored Cardiac exam, Rhythm is regular.. No murmurs, rubs or gallops. Abdominal exam reveals normal bowel sounds, soft non tender, no masses Extremities are nonedematous and both pedal pulses are normal. Neurologic exam is alert and oriented, no focal loss of strength or sensation Skin is without bruises or rashes Psychologically is without concerns for anxiety or depression. Discharge Data Allergies Allergy/AdvReac Type Severity Reaction Status Date / Time mercury (elemental) Allergy Intermediate Rash Unverified 10/04/20 11:14 adhesive Allergy Mild Rash to Unverified 10/04/20 11:15 band aids - possibly adhesive or latex - uncertain Consultations 10/04/20 11:37 ED Decision to Admit Stat 10/04/20 18:59 Consult Cardiology Routine 10/08/20 10:13 Consult Health Information Management Routine Procedures Performed Operation Date: 10/05/20 13:00 Actual Procedures p Cath, Left with Cors and Vent - Keegan Benitez MD s Cineradiography w/Routine Exam - Keegan Benitez MD Ordered Studies 10/05/20 11:39 CL Cath Imgs for PACS use only Stat 10/05/20 14:37 CT abd pelvis oral con only Routine Hospital Course (1) Pneumonia: CXR shows b/l infiltrates but they did improved after lasix, echo with preserved Ef. CT abd/pelvis 10/05 shows bilateral ground glass, did order biofire to try to diagnose his infectious source with his persistent fevers, all viral tests on biofire negative Ct did rule out diverticultits, but does show some colitis since had fever and imaging persists of bilateral ground glass infiltrates, did change to doxycycline as his Lyme titre was equivocal IgM, pending further testing, Doxycycline will cover pulmonary process, sent urine legionella but is pending at time of discharge Stool for C diff is negative and stool cultures negative with exception of giardia, but this is also send out. Pt states only drank "city" water and bottled water, did stop flagyl last exposure to his family in [place] was 09/24/20, he was tested 09/20/20, he denies other exposures since and his who remains in [place] is negative Rapid COVID was checked -- negative. IDnow COVID also negative. covid on biofire negative since covid tests are negative x3, will release from airborne given diarrhea did check C diff ( its also negative) no contact isoloation required blood cultures negative to date, urine culture ordered but uncollected , lyme equivocal awaiting further testing, anaplasmosis did not see any inclusions on peripheral smear possible lyme disease causing febrile illness, send out testing was corrupted, resent test on day, gave RX for outpt doxycycline as pts fevers defervesced after doxycycline started will have pt observe typical surgical mask precautions negative procal level on admission (2) Chest pain: serial troponins are unrevealing, left heart cath 10/05 with non occlusive disease continue metoprolol for a.fib rate control and BP control. Check lipids TC 85 Ha1c 6.2 Cont asa & statin. [facility] cardiology reviewed echo, without acute concern, [facility] with non occlusive disease (3) Dyspnea: rapid a.fib vs CAD vs pulmonary edema vs infectious etiology could all cause his symptoms. PE unlikely given his chronic eliquis use. lasix x 1. with radiologic improvment suggesting maybe volume overload, clinically is improved afib rates improved with treatment of febrile illness (4) Exposure to COVID-19 virus: 3 negative tests, will remove from airborne precautions, did speak [facility] INfection control and will have on procedure mask and have staff take usual precaustions (5) Atrial fibrillation: rapid PAF. converted back to NSR in ER. Cont BB. Cont anticoagulation. (6) Hyperlipidemia: favorable lipids Cont statin. (7) Essential (primary) hypertension: Cont all home meds and adjust as needed. (8) Morbid obesity: BMI 45.9 (9) Nonobstructive atherosclerosis of coronary artery: non occlusive disease Cont aspirin, beta jerel, statin. (10) DVT prophylaxis: resume eliquis Total Time Total Time Spent Total Time Spent (In Minutes): It required greater than 30 minutes to prepare this patient for discharge Discharge Plan Discharge Items Patient Disposition: Home - Self-Care Reason For Visit: CHEST PAIN, RAPID A FIB Discharge Diagnosis: non cardiac chest pain -> negative heart cath febrile illness likely tic borne illness diarrhea Activity: Per Instructions section Activity Comment: slowly increase physical activity Non-emergency contact: Primary Care Provider and Information Security Engineer Call non-emergency contact if: you have any medication questions and your symptoms worsen Follow-up/Referrals: PCP,NO [Primary Care Provider] - Diet: Regular Addtl Attending Provider Instructions: rest and hydrate complete antibiotics follow up with your family doctor upon return to home Pending Studies at Discharge: Yes Stand-Alone Forms: [facility], Sm[facility] Cess[facility] Medications and DC Order Prescriptions: New doxycycline hyclate 100 mg capsule 100 mg PO BID 10 Days Qty: 20 RF: 0 Continued ascorbic acid (vitamin C) [Vitamin C] 1,000 mg Tablet 1 g PO QAM RF: 0 omeprazole 40 mg Capsule,Delayed Release(Dr/Ec) 40 mg PO QAM RF: 0 aspirin 81 mg Tablet,Delayed Release (Dr/Ec) 81 mg PO HS RF: 0 metoprolol tartrate 50 mg Tablet 75 mg PO HS RF: 0 hydrochlorothiazide 12.5 mg Capsule 12.5 mg PO QAM RF: 0 zinc 50 mg Tablet 50 mg PO QAM RF: 0 ramipril 10 mg Capsule 10 mg PO BID RF: 0 rosuvastatin 20 mg Tablet 20 mg PO HS RF: 0 Ocuvite Adult 50 Plus 250-5-1 mg Capsule 1 cap PO QAM RF: 0 Centrum Silver Men 300-600-300 mcg Tablet 1 tab PO QAM RF: 0 Eliquis 5 mg Tablet 5 mg PO BID RF: 0 Discharge Orders: Discharge Order (Routine); Ordered 10/08/20 Ordered By: Thanh Quispe/Other Patient Handouts: 5 Steps for Eating Healthier, A1C Admission Data Admit Date/Time: 10/04/20 18:47 Attending Provider: Thanh Rasmussen Admit Provider: Santiago Guillermo Primary Care Provider: PCP,NO Other Providers: Santiago Guillermo ; Mynor Traore Other Interventions: Discharge Summary Assessment (RN) Last Done: 10/08/20 11:10 Coding Level of Care Code D/C Day Management >30 mins Diagnoses Pneumonia J18.9 Laterality: unspecified laterality Lung location: unspecified part of lung Pneumonia type: due to unspecified organism Chest pain R07.9 Chest pain type: unspecified Dyspnea R06.00 Dyspnea type: dyspnea on exertion Exposure to COVID-19 virus Z20.828 Atrial fibrillation I48.0 Atrial fibrillation type: paroxysmal Hyperlipidemia E78.2 Hyperlipidemia type: mixed hyperlipidemia Essential (primary) hypertension I10 Morbid obesity E66.01 Nonobstructive atherosclerosis of coronary artery I25.10 DVT prophylaxis Z29.9
[2020-10-12 03:52] LABS: 18KDIGG Band NON-REACTIVE; 23KDIGG Band NON-REACTIVE; 23KDIGM Band DNR; 28KDIGG Band NON-REACTIVE; 30KDIGG Band NON-REACTIVE; 39KDIGG Band NON-REACTIVE; 39KDIGM Band DNR; 41KDIGG Band NON-REACTIVE; 41KDIGM Band DNR; 45KDIGG Band NON-REACTIVE; 58KDIGG Band NON-REACTIVE; 66KDIGG Band NON-REACTIVE; 93KDIGG Band NON-REACTIVE; Lyme Antibodies, WB IgG NEGATIVE (NEGATIVE)
--- NOTE | 2020-10-15 14:05 | Coding Query ---
CODING QUERY To promote full compliance with coding requirements relating to patient care, provider participation is requested in all cases of invoice coder uncertainty. Please assist us with the question(s) below: Coding Question(s): 1. Pneumonia is documented in the record with documentation on the Discharge Summary that b/l infiltrates improved after lasix and documentation of, "since had fever and imaging persists of bilateral ground glass infiltrates, did change to doxycycline as his Lyme titre was equivocal IgM, pending further testing, Doxycycline will cover pulmonary process" and "Dyspnea: rapid a.fib vs CAD vs pulmonary edema vs infectious etiology could all cause his symptoms. PE unlikely given his chronic eliquis use. lasix x 1. with radiologic improvment suggesting maybe volume overload, clinically is improved afib rates improved with treatment of febrile illness". It is not clear if Pneumonia was ruled-out or possible. Please specify below, in your clinical opinion. ( ) Possible Pneumonia was treated. Please specify below: (xx ) Possible Pneumonia, Unspecified ( ) Possible Pneumonia, Other: Please Specify ( ) Pneumonia is Ruled-Out 2. There is documentation of possible Pulmonary Edema in the record and on Discharge Summary. Please specify below, in your clinical opinion, regarding the possible Pulmonary Edema. ( xx) Possible Acute Pulmonary Edema ( ) Possible Chronic Pulmonary Edema ( ) Possible Unspecified Pulmonary Edema ( ) Pulmonary Edema is Ruled-Out ( ) Other: Please Specify 3. The Discharge Summary documents Febrile Illness felt to be Tickborne and also documents, " lyme equivocal awaiting further testing, anaplasmosis did not see any inclusions on peripheral smear possible lyme disease causing febrile illness, send out testing was corrupted, resent test on dc day, gave RX for outpt doxycycline as pts fevers defervesced after doxycycline started". Please clarify below, in your clinical opinion. ( ) Febrile Illness felt to be Tickborne is possible due to Lyme Disease. Please specify further regarding Present on Admission status: ( ) Present on Admission ( ) Not Present on Admission ( ) Unknown if Present on Admission ( ) Febrile Illness felt to be Tickborne is possible due to Other: Please Specify . Please specify further regarding Present on Admission status: ( ) Present on Admission ( ) Not Present on Admission ( ) Unknown if Present on Admission ( ) Febrile Illness felt to be Tickborne is due to Unspecified tick bourne disease. Please specify further regarding Present on Admission status: ( ) Present on Admission ( ) Not Present on Admission ( ) Unknown if Present on Admission Physician's Response(s): Thank you Ofelia Webb Principal Diagnosis: "that condition established after study, to be chiefly responsible for occasioning the admission of the patient to the hospital for care." Co-Existing Principal Diagnosis: "when two or more diagnoses equally meet the criteria for principal diagnosis as determined by the circumstances of admission, diagnostic work up, and/or therapy provided, and the Alphabetic Index, Tabular List, or another coding guideline does not provide sequencing direction, any one of the diagnoses may be sequenced first." "When the physician has documented what appears to be a current diagnosis in the body of the record, but has not included the diagnosis in the final diagnostic statement, the physician should be asked whether the diagnosis should be added." (Source [facility]oding [facility] 2 QTR90. p3-4) TYREE
--- NOTE | 2020-10-18 08:27 | Coding Query ---
CODING QUERY To promote full compliance with coding requirements relating to patient care, provider participation is requested in all cases of bolt labeler uncertainty. Please assist us with the question(s) below: Coding Question(s): The following query had been included with previous queries and it was not answered at that time. Please clarify, in your clinical opinion. Thank you! The Discharge Summary documents Febrile Illness felt to be Tickborne and also documents, " lyme equivocal awaiting further testing, anaplasmosis did not see any inclusions on peripheral smear possible lyme disease causing febrile illness, send out testing was corrupted, resent test on day, gave RX for outpt doxycycline as pts fevers defervesced after doxycycline started". Please clarify below, in your clinical opinion. (xx ) Febrile Illness felt to be Tickborne is possible due to Lyme Disease. Please specify further regarding Present on Admission status: ( xx) Present on Admission ( ) Not Present on Admission ( ) Unknown if Present on Admission ( ) Febrile Illness felt to be Tickborne is possible due to Other: Please Specify . Please specify further regarding Present on Admission status: ( ) Present on Admission ( ) Not Present on Admission ( ) Unknown if Present on Admission ( ) Febrile Illness felt to be Tickborne is due to Unspecified tick bourne disease. Please specify further regarding Present on Admission status: ( ) Present on Admission ( ) Not Present on Admission ( ) Unknown if Present on Admission Physician's Response(s): Thank you Ofelia Webb Principal Diagnosis: "that condition established after study, to be chiefly responsible for occasioning the admission of the patient to the hospital for care." Co-Existing Principal Diagnosis: "when two or more diagnoses equally meet the criteria for principal diagnosis as determined by the circumstances of admission, diagnostic work up, and/or therapy provided, and the Alphabetic Index, Tabular List, or another coding guideline does not provide sequencing direction, any one of the diagnoses may be sequenced first." "When the physician has documented what appears to be a current diagnosis in the body of the record, but has not included the diagnosis in the final diagnostic statement, the physician should be asked whether the diagnosis should be added." (Source Coding [facility] 2 QTR90. p3-4) TYREE
== END 2020-10-08 13:32 | disposition home or self-care (01) | DRG 867 ==
LOC: ED 10:03 → 2S 18:38 → SUATTDRO 18:47 → 2S 18:47 → 2W 10-07 13:34